=== PATIENT | female | born 1940 | race Caucasian/White ===

== ENCOUNTER 2024-08-06 11:09 | Inpatient (IN) | payer MEDICARE, SELFPAY ==
[2024-08-06] VITALS (20 sets, daily range): BP systolic 116–161; BP diastolic 39–138; PULSE 48–111; RESP 14–28; TEMP 36.4–36.6; O2SAT 93–100; BMI 24.1
--- NOTE | ~2024-08-06 | XR_ITS ---
Exam: Abdomen 1V HISTORY: constipation COMPARISON: None. TECHNIQUE: Supine images of the abdomen FINDINGS: Significant gaseous distention of the stomach. Fecal stasis within the colon. There is no free air or deep sulci. No pathologic calcifications are seen. Lung bases are clear. Bones and soft tissues demonstrate degenerative disease. IMPRESSION: Fecal stasis within the colon with extensive gaseous distention of the stomach. Reviewed, dictated and finalized at location A. TMAN
--- NOTE | ~2024-08-06 | XR_ITS ---
EXAMINATION: XR chest 1V portable DATE: 08/11/2024 10:13 INDICATION: Pneumonia. Leukocytosis. TECHNIQUE: A single frontal view of the chest was obtained. COMPARISON: Chest 2 views 08/06/2024 FINDINGS: There is mild atelectasis versus scarring in the lower lung zones. There are surgical tsang es in right lower lobe. No pleural effusion or pneumothorax. The heart size is normal. There is a tot al right shoulder arthroplasty. IMPRESSION: 1. Mild atelectasis versus scarring in the lower lung zones. Reviewed, dictated and finalized at location A. UCT SUPPORT CONSULTANT
--- NOTE | ~2024-08-06 | XR_ITS ---
EXAMINATION: XR chest 2V DATE: 08/06/2024 13:37 INDICATION: Weakness TECHNIQUE: frontal and lateral views of the chest were obtained. COMPARISON: None FINDINGS: Mild interstitial and airspace opacities in bilateral lower lung zones.There is blunting at the poste rior sulcus which could be related to postoperative scarring given the nearby multiple surgical clips in the infrahilar region of the posterior right lower lung zone or secondary to a small right pleura l effusion. No pneumothorax or left-sided pleural effusion.. Borderline heart size accounting for AP technique. Coronary artery stenting. Reverse right total shoulder arthroplasty. Surgical clips at the right axilla. IMPRESSION: 1. Mild opacities in the bilateral lower lung zones which could represent mild pulmonary edema, atele ctasis or pneumonia. 2. Postoperative changes in the right infrahilar region with blunting at the posterior sulcus which c ould represent either postoperative atelectasis/scarring versus a small right pleural effusion. 2. Borderline heart size. Reviewed, dictated and finalized at location B. ODUCTIVE ENDOCRINOLOGIST IMPRESSION: 1. Mild opacities in the bilateral lower lung zones which could represent mild pulmonary edema, atelectasis or pneumonia. 2. Postoperative changes in the right infrahilar region with blunting at the po sterior sulcus which could represent either postoperative atelectasis/scarring versus a small right pleural effusion. 2. Borderline heart size.
--- NOTE | 2024-08-06 11:57 | ECG_ITS ---
Test Date: 2024-08-06 13:17:45 Measurements Intervals [place] Rate: 51 P: 101 [place]: 173 QRS: 49 QRSD: 122 T: 34 QT: 455 QTc: 421 Interpretive Statements SINUS BRADYCARDIA WITH OCCASIONAL SUPRAVENTRICULAR PREMATURE COMPLEXES RIGHT BUNDLE BRANCH BLOCK [120+ ms QRS DURATION, UPRIGHT V1, 40+ ms S IN I/aVL/V4/V5/V6] No previous ECG available for comparison Electronically Signed On 08-06-2024 14:33:05 [facility] by Justin Stephens M.D.
--- NOTE | 2024-08-06 11:58 | ED.WEAKNESS ---
HPI - Weakness General Chief complaint: Weakness <Lenore Smalls PA-C - Last Filed: 08/07/24 17:20> Stated complaint: sob, recent flu+ <Lenore Smalls PA-C - Last Filed: 08/07/24 17:20> Time Seen by Provider: 08/06/24 11:59 <Lenore Smalls PA-C - Last Filed: 08/07/24 17:20> Focused HPI: This is a 83 year old female that presents to the ER for shortness of breath. Also reports generalized weakness. Family believes she had the flu. Has had worsening productive cough. Weakness to the point where she is having difficulty getting around. Reports history of COPD, chronically on 3L NC. GENERAL: Elderly, well-nourished, and in no acute distress. HEAD: Normocephalic, atraumatic. CHEST: No respiratory distress. Rales in the left lower lobe HEART: Regular rate and rhythm.? NEURO: ?Alert and oriented x3. Patient screened in triage and initial orders placed.? ?Additional care and disposition to be based upon?diagnostic testing and treatment. <Lenore Smalls PA-C - Last Filed: 08/07/24 17:20> History of Present Illness HPI Narrative: Agree with MSE <Chuck Hair MD - Last Filed: 08/06/24 16:49> Related Data Home medications: Home Medications ?Medication ?Instructions ?Recorded ?Confirmed ?Last Taken ?Type furosemide 20 mg tablet 20 mg PO DAILY 08/06/24 08/07/24 Unknown History losartan 25 mg tablet 25 mg PO DAILY 08/06/24 08/07/24 08/05/24 History metoprolol tartrate 50 mg tablet 50 mg PO DAILY 08/06/24 08/07/24 08/05/24 History <Lenore Smalls PA-C - Last Filed: 08/07/24 17:20> Allergies/Adverse reactions: Allergies Allergy/AdvReac Type Severity Reaction Status Date / Time No Known Allergies Allergy Verified 08/06/24 11:10 <Lenore Smalls PA-C - Last Filed: 08/07/24 17:20> Review of Systems Review of Systems: All systems reviewed & are unremarkable except as noted in HPI and below <Lenore Smalls PA-C - Last Filed: 08/07/24 17:20> [facility] Past Medical History Medical History: Medical History Chronic kidney disease, stage 3 Chronic respiratory failure with hypoxia, on home oxygen therapy Chronic obstructive pulmonary disease <Lenore Smalls PA-C - Last Filed: 08/07/24 17:20> Family History Family History: Family History (Updated 08/07/24 @ 01:35 by Ronan Balbuena, RN) Other Cerebrovascular accident <Lenore Smalls PA-C - Last Filed: 08/07/24 17:20> Social History Social History: Social History (Updated 08/06/24 @ 18:27 by Daniela Sanz PA-C) Social History: Surrogate medical decision maker: Anthony Awan, son ([phone]). Code status: Full code. Smoking status: Former smoker Tobacco type: cigarettes Smoking end date: 07/16/12 Alcohol intake: former Drinks per week: 7 Substance use: never Do You Feel Safe in your Home?: Yes Lack of Transportation: No Lack of Food: Never True Current Housing: I Have Housing Concerned About Future Housing: No Difficulty Paying Gas/Electric Bills: No Difficulty Paying for Meds: No Currently Unemployed: No Education: Bachelor's Degree Difficulty w/ Childcare or Family Care: No Spiritual care concerns: No <Lenore Smalls PA-C - Last Filed: 08/07/24 17:20> Exam Narrative: APPEARANCE: No apparent distress. Head: atraumatic. EYES: EOMI, NOSE: Atraumatic NECK: Trachea midline RESPIRATORY: Tachypneic, scattered wheezing CARDIOVASCULAR: RRR, no peripheral edema ABDOMINAL: Non-distended soft nontender MUSCULOSKELETAl: No obvious deformities NEURO: Alert. Moving 4/4 extremities SKIN:: Warm, dry. Normal color PSYCHIATRIC: Normal affect <Chuck Hair MD - Last Filed: 08/06/24 16:49> Course Vital Signs Vital signs: Vital Signs Temperature 97.6 F 08/06/24 11:10 Pulse Rate 76 08/06/24 11:10 Respiratory Rate 22 H 08/06/24 11:10 Blood Pressure 143/39 H 08/06/24 11:10 Pulse Oximetry 96 08/06/24 11:10 Oxygen Delivery Nasal Cannula 08/06/24 11:10 Oxygen Flow Rate 3 08/06/24 11:10 Temperature 99.2 F 08/07/24 14:00 Pulse Rate 68 08/07/24 14:18 Respiratory Rate 20 08/07/24 14:18 Blood Pressure 130/116 H 08/07/24 14:00 Pulse Oximetry 94 08/07/24 14:00 Oxygen Delivery Nasal Cannula 08/07/24 09:40 Oxygen Flow Rate 3 08/07/24 09:40 <Lenore Smalls PA-C - Last Filed: 08/07/24 17:20> Vital Signs Temperature 97.6 F 08/06/24 11:10 Pulse Rate 76 08/06/24 11:10 Respiratory Rate 22 H 08/06/24 11:10 Blood Pressure 143/39 H 08/06/24 11:10 Pulse Oximetry 96 08/06/24 11:10 Oxygen Delivery Nasal Cannula 08/06/24 11:10 Oxygen Flow Rate 3 08/06/24 11:10 Temperature 99.2 F 08/07/24 14:00 Pulse Rate 68 08/07/24 14:18 Respiratory Rate 20 08/07/24 14:18 Blood Pressure 130/116 H 08/07/24 14:00 Pulse Oximetry 94 08/07/24 14:00 Oxygen Delivery Nasal Cannula 08/07/24 09:40 Oxygen Flow Rate 3 08/07/24 09:40 <Chuck Hair MD - Last Filed: 08/06/24 16:49> MDM - Weakness MDM Narrative Medical decision making narrative: -Course: 83-year-old female on 3 L home oxygen who tested positive for flu @ home presenting for difficulty breathing. Symptoms started 8 days ago. On exam she is wheezy. She has dyspnea at rest. Patient given a breathing treatment. Found have an incidental UTI and started on ceftriaxone. Chest x-ray showed opacities the bilateral lows zones of could be pulmonary edema atelectasis or pneumonia. BNP at 3800 but patient does not appear fluid overloaded. No echo in our system. Patient will be admitted hospital for further management of for influenza. -DDX includes but is not limited to: COVID/flu/pneumonia/COPD/CHF -Independent interpretation of studies: White count 7.1 Metabolic panel normal BNP 3900 chest x-ray shows borderline heart and bibasilar edema versus infiltrates. Urine with 21-50 white blood cells and +2 leuk esterase. Started on ceftriaxone. Independent EKG interpretation: Rhythm [sinus], Rate [51], [place] -[normal], [place] -[normal], QRS [narrow], QTC [normal], T waves -[negative for concerning inversions], ST Segments - [Negative for concerning elevations] Final interpretations: Sinus Walter -Shared decision making / Disposition: Admitted. <Chuck Hair MD - Last Filed: 08/06/24 16:49> Lab Data Result diagrams: 08/07/24 06:26 08/07/24 06:26 <Lenore Smalls PA-C - Last Filed: 08/07/24 17:20> Labs: Lab Results 08/06/24 08/06/24 Range/Units 12:03 13:21 WBC 7.1 (4.5-10.0) K/mm3 RBC 4.39 (4.2-5.4) M/mm3 Hgb 11.6 L (12.0-15.0) g/dL Hct 37.0 (37.0-47.0) % MCV 84.3 (80-100) fl MCH 26.4 (26-34) pg MCHC 31.4 L (32-36) g/dl RDW 14.2 (11.5-14.5) % Plt Count 233 (150-375) k/mm3 MPV 9.7 (7.4-10.4) fl Immature Gran % (Auto) 0.7 H (0-0.5) % Neut % (Auto) 77.1 H (45.5-73.1) % Lymph % (Auto) 16.3 L (18.3-44.2) % [place] % (Auto) 4.8 (2.6-8.5) % Eos % (Auto) 0.8 (0-4.4) % Baso % (Auto) 0.3 (0.2-1.2) % Lymph # (Auto) 1.16 (0.9-3.2) K/mm3 [place] # (Auto) 0.3 (0.1-0.6) K/mm3 Eos # (Auto) 0.1 (0-0.3) K/mm3 Baso # (Auto) 0.0 (0.0-0.1) K/mm3 Abs Immat Gran (auto) 0.05 H (0.00-0.031) K/mm3 Absolute Neuts (auto) 5.5 (1.3-6.7) K/mm3 Absolute Nucleated RBC 0.000 (0.0-0.012) K/mm3 Nucleated RBC % 0.0 (0.0-0.2) % PT 13.6 (11.1-14.7) Seconds INR 1.0 APTT 30.5 (22.3-36.8) Seconds Sodium 140 (137-145) mmol/L Potassium 4.9 (3.4-5.0) mmol/L Chloride 102 (98-107) mmol/L Carbon Dioxide 28 (22-30) mmol/L Anion Gap 10 (4-12) mmol/L BUN 43 H (7-17) mg/dL Creatinine 1.55 H (0.7-1.0) mg/dL Estim Creat Clear Calc 20 ml/min Estimated GFR 32 L (59 - ) Glucose 148 H (65-110) mg/dL Calcium 10.0 (8.4-10.2) mg/dL Total Bilirubin 0.6 (0.2-1.3) mg/dL AST 20 (14-36) U/L ALT 10 (6-35) U/L Alkaline Phosphatase 107 (38-126) U/L NT-Pro-B Natriuret Pep 3920 H (19.9-100) pg/mL Total Protein 7.0 (6.3-8.2) g/dL Albumin 3.7 (3.5-5.1) g/dL Urine Color Yellow (Yellow) Urine Appearance Clear (Clear) Urine pH 5.0 (5.0-9.0) Ur Specific [place] 1.016 (1.001-1.035) Urine Protein 2+ H (Negative) mg/dL Urine Glucose (UA) Negative (Negative) mg/dL Urine Ketones Negative (Negative) mg/dL Ur Blood (Man) Negative (Negative) Urine Nitrate Negative (Negative) Urine Bilirubin Negative (Negative) Urine Urobilinogen 0.2 (<2.0) mg/dL Leukocyte Esterase Rfl 2+ H (Negative) OLEGARIO/UL Urine RBC 0-2 (0-2) /hpf Urine WBC 21-50 H (0-3) /hpf Ur Squamous Epith Cells None seen (Few) /hpf Urine Bacteria None seen /hpf Urine Casts 3-5 Influenza A (RT-PCR) Positive A (Negative) Influenza B (RT-PCR) Negative (Negative) RSV (RT-PCR) Negative (Negative) SARS-CoV-2 RNA (RT-PCR) Negative (Negative) <Lenore Smalls PA-C - Last Filed: 08/07/24 17:20> Lab Results 08/06/24 08/06/24 Range/Units 12:03 13:21 WBC 7.1 (4.5-10.0) K/mm3 RBC 4.39 (4.2-5.4) M/mm3 Hgb 11.6 L (12.0-15.0) g/dL Hct 37.0 (37.0-47.0) % MCV 84.3 (80-100) fl MCH 26.4 (26-34) pg MCHC 31.4 L (32-36) g/dl RDW 14.2 (11.5-14.5) % Plt Count 233 (150-375) k/mm3 MPV 9.7 (7.4-10.4) fl Immature Gran % (Auto) 0.7 H (0-0.5) % Neut % (Auto) 77.1 H (45.5-73.1) % Lymph % (Auto) 16.3 L (18.3-44.2) % [place] % (Auto) 4.8 (2.6-8.5) % Eos % (Auto) 0.8 (0-4.4) % Baso % (Auto) 0.3 (0.2-1.2) % Lymph # (Auto) 1.16 (0.9-3.2) K/mm3 [place] # (Auto) 0.3 (0.1-0.6) K/mm3 Eos # (Auto) 0.1 (0-0.3) K/mm3 Baso # (Auto) 0.0 (0.0-0.1) K/mm3 Abs Immat Gran (auto) 0.05 H (0.00-0.031) K/mm3 Absolute Neuts (auto) 5.5 (1.3-6.7) K/mm3 Absolute Nucleated RBC 0.000 (0.0-0.012) K/mm3 Nucleated RBC % 0.0 (0.0-0.2) % PT 13.6 (11.1-14.7) Seconds INR 1.0 APTT 30.5 (22.3-36.8) Seconds Sodium 140 (137-145) mmol/L Potassium 4.9 (3.4-5.0) mmol/L Chloride 102 (98-107) mmol/L Carbon Dioxide 28 (22-30) mmol/L Anion Gap 10 (4-12) mmol/L BUN 43 H (7-17) mg/dL Creatinine 1.55 H (0.7-1.0) mg/dL Estim Creat Clear Calc 20 ml/min Estimated GFR 32 L (59 - ) Glucose 148 H (65-110) mg/dL Calcium 10.0 (8.4-10.2) mg/dL Total Bilirubin 0.6 (0.2-1.3) mg/dL AST 20 (14-36) U/L ALT 10 (6-35) U/L Alkaline Phosphatase 107 (38-126) U/L NT-Pro-B Natriuret Pep 3920 H (19.9-100) pg/mL Total Protein 7.0 (6.3-8.2) g/dL Albumin 3.7 (3.5-5.1) g/dL Urine Color Yellow (Yellow) Urine Appearance Clear (Clear) Urine pH 5.0 (5.0-9.0) Ur Specific [place] 1.016 (1.001-1.035) Urine Protein 2+ H (Negative) mg/dL Urine Glucose (UA) Negative (Negative) mg/dL Urine Ketones Negative (Negative) mg/dL Ur Blood (Man) Negative (Negative) Urine Nitrate Negative (Negative) Urine Bilirubin Negative (Negative) Urine Urobilinogen 0.2 (<2.0) mg/dL Leukocyte Esterase Rfl 2+ H (Negative) OLEGARIO/UL Urine RBC 0-2 (0-2) /hpf Urine WBC 21-50 H (0-3) /hpf Ur Squamous Epith Cells None seen (Few) /hpf Urine Bacteria None seen /hpf Urine Casts 3-5 Influenza A (RT-PCR) Positive A (Negative) Influenza B (RT-PCR) Negative (Negative) RSV (RT-PCR) Negative (Negative) SARS-CoV-2 RNA (RT-PCR) Negative (Negative) <Chuck Hair MD - Last Filed: 08/06/24 16:49> Imaging Data Radiologist's impression: ITS Impressions Chest X-Ray 08/06/24 13:38 IMPRESSION: 1. Mild opacities in the bilateral lower lung zones which could represent mild pulmonary edema, atelectasis or pneumonia. 2. Postoperative changes in the right infrahilar region with blunting at the posterior sulcus which could represent either postoperative atelectasis/scarring versus a small right pleural effusion. 2. Borderline heart size. <Lenore Smalls PA-C - Last Filed: 08/07/24 17:20> Critical Care Time Critical Care Time Critical Care Time: No <Lenore Smalls PA-C - Last Filed: 08/07/24 17:20> Discharge Plan Discharge Clinical Impression: Influenza A, COPD exacerbation <Lenore Smalls PA-C - Last Filed: 08/07/24 17:20> Patient Disposition: Still a Patient <DIONTE Burgos Last Filed: 08/07/24 17:20> Condition: Guarded Prognosis <DIONTE Burgos Last Filed: 08/07/24 17:20>
[2024-08-06 12:19] LABS: Basophils Percent Auto 0.3 % (0.2-1.2); Eosinophils Absolute Auto 0.1 K/mm3 (0-0.3); Eosinophils Percent Auto 0.8 % (0-4.4); Hemoglobin 11.6 g/dL (12.0-15.0); Immature Granulocyte Absolute 0.05 K/mm3 (0.00-0.031); Immature Granulocyte Percent A 0.7 % (0-0.5); Lymphocytes Absolute Auto 1.16 K/mm3 (0.9-3.2); Lymphocytes Percent Auto 16.3 % (18.3-44.2); Mean Corpuscular HGB Conc 31.4 g/dl (32-36); Mean Corpuscular Hemoglobin 26.4 pg (26-34); Mean Corpuscular Volume 84.3 fl (80-100); Mean Platelet Volume 9.7 fl (7.4-10.4); Monocytes Absolute Auto 0.3 K/mm3 (0.1-0.6); Monocytes Percent Auto 4.8 % (2.6-8.5); Neutrophils Absolute Auto 5.5 K/mm3 (1.3-6.7); Neutrophils Percent Auto 77.1 % (45.5-73.1); Platelet Count Result 233 k/mm3 (150-375); Red Blood Count 4.39 M/mm3 (4.2-5.4); Red Cell Distribution Width 14.2 % (11.5-14.5); White Blood Count 7.1 K/mm3 (4.5-10.0)
[2024-08-06 12:31] LABS: Alanine Aminotransferase 10 U/L (6-35); Albumin Level 3.7 g/dL (3.5-5.1); Alkaline Phosphatase 107 U/L (38-126); Anion Gap 10 mmol/L (4-12); Aspartate Amino Transferase 20 U/L (14-36); Bilirubin,Total 0.6 mg/dL (0.2-1.3); Blood Urea Nitrogen 43 mg/dL (7-17); Carbon Dioxide 28 mmol/L (22-30); Chloride 102 mmol/L (98-107); Estimated CRCL calculation 20 ml/min; Estimated Glomerular Filt Rate 32; Glucose 148 mg/dL (65-110); Potassium 4.9 mmol/L (3.4-5.0); Sodium 140 mmol/L (137-145)
[2024-08-06 12:32] LABS: Prothrombin Time 13.6 Seconds (11.1-14.7)
[2024-08-06 12:33] LABS: Partial Thromboplastin Time 30.5 Seconds (22.3-36.8)
[2024-08-06 12:40] LABS: NT Pro B Type Natriuretic Pept 3920 pg/mL (19.9-100)
[2024-08-06 12:56] LABS: Influenza A QL RT-PCR Positive (Negative); Influenza B QL RT-PCR Negative (Negative); RSV RNA, RT-PCR Negative (Negative); SARS-CoV-2 RNA PCR Negative (Negative)
[2024-08-06 14:05] LABS: Add Urine Microscopic? YES; Appearance Urine Clear (Clear); Bacteria Urine None Seen /hpf; Bilirubin Urine Negative (Negative); Blood Urine Negative (Negative); Color Urine Yellow (Yellow); Glucose Urine UA Negative (Negative); Ketones Urine Negative (Negative); Leukocyte Esterase Ur 2+ LEU/UL (Negative); Nitrate Urine Negative (Negative); Protein Urine 2+ mg/dL (Negative); RBC Urine 0-2 /hpf (0-2); Specific Grav Ur 1.016 (1.001-1.035); Squamous Epithelial Cell Urine None Seen /hpf (Few); Urobilinogen Urine 0.2 mg/dL (<2.0); WBC Urine 21-50 /hpf (0-3)
[2024-08-06] MEDS: IPRATROPIUM 0.5 MG/ALBUTEROL SULFATE 2.5 MG AMPUL.NEB 3 ML 12 ML INHALATION (16:48)
[2024-08-06 16:58] LABS: Alveolar/Arterial O2 Gradient 174.6 mmHg; Base Excess ABG -1.1 mEq/l (+/-2.0); Fractional Inspired Oxygen 40 %; HCO3 ABG 22.2 mEq/l (22.0-26.0); Oxygen Content ABG 15.7 %vol (16.0-22.0); Oxygen Saturation ABG 95.5 % (95.0-100.0); Oxyhemoglobin 94.6 % THb (90.0-100.0); PCO2 ABG 32.5 mmHg (35.0-45.0); PO2 ABG 73.2 mmHg (80.0-100.0); PO2 FiO2 Ratio Arterial Blood 1.83 %; Total Hemoglobin 11.8 g/dL (12.0-18.0); pH ABG 7.452 (7.350-7.450)
[2024-08-06] MEDS: methylPREDNISolone SOD SUCC 125 MG VIAL 60 MG IV PUSH ×2 (17:08→23:15)
--- OUTSIDE RECORDS SUMMARY | 2024-08-06 17:08 | XMS_ITS | Encounter Summary ---
Author Organization [facility] Address [facility]. [place], [place] [id number] [place] [id number] Care Team Providers Care Fisher Eel Spear Name Role Phone Dagoberto Coates MD Primary Care Provider Cecil Bertrand MD Unavailable Unavailable Hussein oRbertson MD Unavailable [phone] Encounter Details Date Type Department Care Team ([facility] Contact Info) Description [facility]/13/2015 [facility] [address] [phone] Wilmer Caldera MD Social History Tobacco Use Types Packs/Day Years Used Date Smoking Tobacco: Former Cigarettes Q uit: 2013 Alcohol Use Standard Drinks/Week Comments Not Asked 0 (1 standard drink = 0.6 oz pur e alcohol) Rarely Comments Unknown Sex and Gender Information Value Date Recorded Sex Assigned at Not on file Legal Sex Female 1:16 AM CDT Gender Identity Not on file Sexual Orientation Not on file Occupation Industry Job Start Date Job End Date Retired Not on file Not on file Not on file documented as of this encounter Plan of Treatment Upcoming Encounters Date Type Department Care Team (Late Contact Info) Description 11/09/2024 1:00 PM CDT Office Visit [facility] [address] [place] [id number] Dagoberto Coates MD [address] [place] [phone] documented as of this encounter Visit Diagnoses Not on filedocumented in this encounter Additional Health Concerns Infection Onset Date Last Indicated Resolved Time COVID-19 Rule Out 04/12/2020 04/12/2020 04/14/2020 9:42 AM CDT documented as of this encounter Care Teams Fisher Eel Spear Relationship Specialty Start Date End Date Dagoberto Coates MD [address] [place] [phone] PCP - General FAMILY PRACTICE 05/14/16 Cecil Bertrand MD [address] [place] [phone] CARDIOVASCULAR DISEASE 05/14/16 05/08/20 Hussein Robertson MD [address] [place] [phone] [place] [employer] INTERVENTIONAL CARDIOLOGY 05/09/20 documented as of this encounter
--- OUTSIDE RECORDS SUMMARY | 2024-08-06 17:09 | XMS_ITS | Data Portability ---
Author Organization [facility], [address] [place] [address] [place]rology ([place]) Address [address] [place] [phone] Care Team Providers Care Aircraft Engine Assembler Name Role Phone JOSHUA BARRY Primary Care Provider Assessment Encounter Date Assessment Date Assessment LastModified by Organization Details LastModified Time 10/17/2023 10/17/2023 Interval History : The patient presents today for surgical follow-up after a rightreverse total shoulder arthroplasty. The patient feels like they are on par with the recovery process and doing well Activity:The patient has been using their surgical shoulder for normal light tasks without difficulty. Incision: The patient reports their incision is healing well without complication. Therapy: The patient has completed her PT regimen. PHYSICAL EXAM: Objective/exam: Sensory motor nerve function : SILT across median, ulnar, radial distributions AXILLARY NERVE able to fire all three heads of the deltoid strongly PASSIVE RANGE OF MOTIONtolerated passive ROM without crepitance Active Foward elevation> 150 degrees. External Rotation 50-70 degrees. Internal RotationLumbar Spine. INCISION: The incision is fully healed without complication. Assessment: Side:Right Reverse total shoulder Plan: We discussed the overall clinical findings as well as reviewed the patient? s course in the digital record and to an extent with the patient. We discussed the expected prognosis and the plan moving forward. We reviewed anything we could have changed along the way with the patient and offered a time for feedback. Both the patient and myself are informed in my estimation based on the encounter today. We discussed some of the complicating factors that could affect this patient's course fdc. At the end of the conversation I, again, gave the patient a chance to ask any questions and answered them to the best of my ability. Therapy: We feel the patient is doing well enough to transition to a home based therapy regimen We will continue to follow the patient along per our protocol. They were encouraged to call our office with any questions or concerns in the meantime. Followup at the 1 year postop elisabet. The patient was given follow up information and the ability to contact our clinic with any additional questions. [email or web address] Not available 10/17/2023 16:17:53 06/26/2024 06/26/2024 RESULTS/DATA: Spirometry shows moderate obstruction. IMPRESSION AND PLAN: Obtain chest x-ray. She is going to follow up with her primary care doctor for a fatigue workup. Continue nebulized Yupelri q. day. Continue nebulized Perforomist b.i.d. Continue nebulized budesonide b.i.d. Continue albuterol as rescue therapy. Continue supplemental oxygen 2 L/min with rest/sleep and 3 L/min with activity. I will see her back in 9 months. The agenda will include a simple spirometry. She is too weak to walk. clb [email or web address] Not available 06/26/2024 12:47:28 Plan of Treatment Reminders Order Date Submit Date Provider Last Modified By Organization Details Last Modified Time Details Appointments Michele w Exercise Oximetry .PRO 2024 01:30P M [facility] Not available Not available Not available Establis hed Patient 15.EST 2024 02:00P M Dr. Tato Peralta Not available Not available Not available Lab None recorded . Referral None recorded . Procedures None recorded . Surgeries None recorded . Imaging XR, chest, 2 view 2023 024 DUANE [facility], [address] [place] [address], [id number], 06/26/2024 12:33:56 Medication Orders None recorded . Patient TargetsNo targets recorded. Patient InstructionsNo instructions recorded. Reason for Referral None Reported. Results Created Date Observation Date Name Description Value Unit Range Abnormal Flag Note LastModifiedBy Organization Detail LastModifiedTime 10/18/19 24 10/17/2023 XR, shoul lupillo, 2 or more view [facility] [address]st [address] [address] Teleph one [phone] Name: Dean Awan [id number] am Date: 2023 Age: 82Phys ician: WILLIAM Grace, Alma : 1940Ex aminat ion: XR SHOULD ER COMPLE TE RIGHT EXAMIN ATION: Right should er x-ray, 4 views INDICA TION: Post op right should er surger y . FINDIN GS: No fractu re identi fied. There is a revers e should er arthro plasty . The compon ents appear well seated . No destru ctive osseou s lesion identi fied. There is a healin g fractu re of the proxim al humeru s unchan ged since 07/10/19. IMPRES DOE: Healin g fractu re the proxim al humeru s and revers e should er arthro plasty withou t signif icant change since 07/10/19. Electr onical ly signed in Gaytan cribe by: FRANSISCO MCFARLAND MD on:10/06 7:51 AM cc: Page PAGE 1 of [facility] 1 [email or web address] Sc Only - S c Radiology [address] [place] [address], [id number], 10/21/2023 08:12:26 11/07/19 24 11/07/2023 PFT No observ ation record ed. INTERFACE [facility] Only - [facility] Pulmon[facility] [address] [place] [address], [id number], 11/07/2023 17:34:47 11/08/19 24 11/07/2023 XR, chest , 2 view [facility] [address] [address] Teleph one Name: Dean Awan [id number] Exam Date: 2023 Age: 82 Physic jaguar: MD Fabian, Eric nesbitt : 1940 Examin ation: XR CHEST 2 VIEWS Chest X-Ray Indica tion: Routin e follow up for histor y of COPD. Chroni c shortn ess of breath .. Compar isons: 11/09/19 Techni que: 2 views of the chest. Findin gs: Right hip arthro plasty . Surgic al clips overli e the right lower lobe. Blunti ng of the right costop hrenic angle which is chroni c. No pulmon thien consol idatio n. Unrema rkable cardio medias tinal silhou ette. No pleura l effusi on or pneumo thorax . No acute osseou s abnorm ality. Impres doe No acute cardio pulmon thien abnorm ality. Electr onical ly signed in Gaytan cribe by: IVANA AZAR MD on:11/07 7:42 AM cc: Page PAGE 1 of [facility] ES 1 INTERFACE [facility] [address] [place], [address], 11/08/2023 08:45:34 02/19/20 24 11/08/2022 imagi ng/di agnos tic resul t No observ ation record ed. Not Available 02/19/2024 22:02:45 02/19/20 24 01/15/2023 imagi ng/di agnos tic resul t No observ ation record ed. Not Available 02/19/2024 22:02:50 05/04/20 24 11/07/2023 imagi ng/di agnos tic resul t No observ ation record ed. [email or web address] Not Available 05:08:11 06/26/20 24 06/26/2024 XR, chest , 2 view [facility] [address] [place] [address] Teleph one Name: Dean Awan [id number] Exam Date: 2023 Age: 83 Physic jaguar: MD Fabian, Eric : 1940 Examin ation: XR CHEST 2 VIEWS EXAMIN ATION: Chest 2 views HISTOR Y: Routin e check up for COPD, patien t on oxygen , histor y fatigu e and cough. FINDIN GS: Compar alicia made to 11/07/19 24. There is a revers e ball-a nd-soc ket right should er arthro plasty . Posttr eatmen t change s in the right lung are again noted. There is no new consol idatio n or pneumo thorax . Heart size normal . Unchan ged blunti ng of the right costop hrenic angle. IMPRES DOE: No acute change seen Electr onical ly signed in Gaytan cribe by: BITA Rowan on: 4 11:31 AM cc: Page PAGE 1 of [facility] 1 verna [facility] Only - [facility] Radiology [address] [place] [address], [id number], 06/26/2024 14:26:56 06/26/20 24 06/26/2024 PFT No observ ation record ed. INTERFACE [facility] Only - [facility] [address] [place] [address], [id number], 06/26/2024 14:05:23 Result Notes None recorded. Problems Name Problem SNOMED Code Status Onset Date Resolution Date Notes Provider Name and Address Organization Details Recorded Time Pain of left shoulder joint 6664211624557 9109 Active 2023 Marina Pan [facility] 4 10:51:28 Pain of right shoulder joint 2001744890537 9100 Active 2023 Marina Traylorbs [facility] 4 15:26:39 Chronic obstructive pulmonary disease 76604451 Active 2023 Jovanna Jorge Luis [facility] 4 11:03:24 Problem Notes None recorded. Procedures Surgical History None recorded. Imaging Results Imaging Date Name Status LastModified by Organiz ation Details LastModified Time 10/17/2023 XR, shoulder, 2 or more view completed [email or web address] [facility] [address] [place] [address], [id number], 10/21/2023 08:12:26 11/07/2023 PFT completed INTERFACE [facility] Only - [facility] [address] [place] [address], [id number], 11/07/2023 17:34:47 11/07/2023 XR, chest, 2 view completed INTERFACE [facility] - [facility] [address] [place] [address], [id number], 11/08/2023 08:45:34 11/08/2022 imaging/diag nostic result completed [email or web address] Information not available 02/19/2024 22:02:45 01/15/2023 imaging/diag nostic result completed [email or web address] Information not available 02/19/2024 22:02:50 11/07/2023 imaging/diag nostic result completed [email or web address] Information not available 05/04/2024 05:08:11 06/26/2024 XR, chest, 2 view completed [email or web address] [facility] Only - [facility] [address] [place] [address], [id number], 06/26/2024 14:26:56 06/26/2024 PFT completed INTERFACE [facility] Only - [facility] [address] [place] [address], [id number], 06/26/2024 14:05:23 Procedure Notes None recorded. Medical Equipment None Reported. Medications Name Sig Start Date Stop Date Status Note LastModified by Organization Details LastModified Time atorvastatin 40 mg tablet active Not Available Not Available Not Available albuterol sulfate 2.5 mg/3 mL (0.083 %) solution for nebulization Inhale 3 mL every 6 hours by nebulizatio n route as needed. active Not Available Not Available No t Available trazodone 50 mg tablet active Not Available Not Available No t Available clopidogrel 75 mg tablet active Not Available Not Available Not Available levofloxacin 250 mg tablet active Not Available Not Available Not Available amlodipine 5 mg tablet active Not Available Not Available No t Available metformin 1,000 mg tablet active Not Available Not Available Not Available losartan 25 mg tablet active Not Available Not Available No t Available metoprolol tartrate 50 mg tablet active Not Available Not Available No t Available budesonide 0.5 mg/2 mL suspension for nebulization Inhale 2 mL twice a day by nebulizatio n route. active Not Available Not Available No t Available furosemide 20 mg tablet active Not Available Not Available Not Available formoterol fumarate 20 mcg/2 mL solution for nebulization Inhale 2 mL twice a day by inhalation route. active Not Available Not Available No t Available Yupelri 175 mcg/3 mL solution for nebulization Inhale 3 mL every day by nebulizatio n route. active Not Available Not Available No t Available albuterol sulf 90 mcg/actuatio n breath activated powder inhaler,sens or Inhale 2 puffs every 6 hours by inhalation route as needed. active Not Available Not Available No t Available Vitals Date Recorded Heart rate Body height Body weight Body mass index (BMI) Provider Name and Address Organization Details Last Updated DateTime 04/15/2024 61 /min 162.56 cm 33040.785 21 g 22.83 kg/m2 Not Available [facility] 04/15/2024 06:03:46 Date Recorded Oxygen saturation Oxygen saturation in Arterial blood by Pulse oximetry Provider Name and Address Organization Details Last Updated DateTime 04/15/2024 95 % 95 % Not Available [facility] 06:03:47 Date Recorded Body height Provider Name an d Address Organization Details Last Updated DateTime 06/26/2024 [facility] 06/26/2024 11:28:57 Date Recorded Body mass index (BMI) Body weight Provider Name and Address Organization Details Last Updated DateTime 06/26/2024 24.4 kg/m2 78469.12 g Dora [facility] 06/26/2024 11:29:03 Date Recorded Heart rate Provider Name an d Address Organization Details Last Updated DateTime 06/26/2024 64 /min [facility] D [facility] 06/26/2024 11:29:14 Date Recorded Oxygen saturation Oxygen saturation in Arterial blood by Pulse oximetry Provider Name and Address Organization Details Last Updated DateTime 06/26/2024 94 % 94 % [facility] 06/26/2024 11:29:26 Date Recorded Systolic blood pressure Diastolic blood pressure Provider Name and Address Organization Details Last Updated DateTime 04/15/2024 133 mm[Hg] 64 mm[Hg] Not Available [place] [address] 05:19:10 Date Recorded Systolic blood pressure Diastolic blood pressure Provider Name and Address Organization Details Last Updated DateTime 06/26/2024 150 mm[Hg] 63 mm[Hg] Dora Valdez [facility] 06/26/2024 11:29:10 Social History Question Answer Notes LastModified by Organizat ion Details LastModified Time Tobacco Smoking Status Former Smoker Dora Valdez [facility] 06/26/2024 11:30:23 How Many Packs Per Day (PPD)? 3 [email or web address] Information not available 06/26/2024 How Long Have You Smoked? 57 [email or web address] Information not available 06/26/2024 When Did You Quit Smoking? 2013 Information not available 06/26/2024 Sex: Unknown Functional Status None recorded. Mental Status None recorded. Family History Nothing Reported. Medical History No medical history recorded. Gynecological HistoryNo gynecological history recorded. Obstetrics History GPAL:G 0 P 0 0 0 0 Past Encounters Encounter ID Performer Location Encounter Start Date Encounter Closed Date Diagnosis/Indication Diagnosis SNOMED-CT Code Diagnosis ICD10 Code Diagnosis Note [id number] Alma Ledezma, MEDICAL SCIENTIST, PACKING MACHINE [employer]IL[employer]TER [address] [facility] ([place]) [address] [place] [phone] 10/17/2023 14:58:26 10/17/2023 17:45:10 [id number] Jovanna Kang [facility] [address] [place] [phone] 06/26/2024 10:56:46 06/26/2024 12:07:41 Chronic obstructive pulmonary disease 04686596 J44.9 [id number] Tato Peralta MD [facility] ([place]) [address] [place] [address] 06/26/2024 10:56:52 06/26/2024 14:47:17 Chronic obstructive pulmonary disease 43236908 J44.9 History of malignant neoplasm of thoracic cavity structure 072726526 Z85.118 Dependence on supplemental oxygen 0604519312 07 Z99.81 Health Concerns Section Related Observation LastModified by Organization Detai ls LastModified Time None Recorded Concern Status LastModified by Organization Details LastModified Time None Recorded Advance Directives Directive None Recorded Payers Encounter Date Sequence Insurance Name Policy Number Policy Valero Covered Member ID Valero Member ID Guarantor Name 10/17/2023 1 [place] Demetria Awan [id number] Demetria Awan 10/17/2023 2 [employer] (MEDICARE SUPPLEMENT) Demetria Awan [id number] Demetria Awan 06/26/2024 1 [place] Demetria Awan [id number] Demetria Awan 06/26/2024 2 [employer] (MEDICARE SUPPLEMENT) Demetria Awan [id number] Demetria Awan 06/26/2024 1 [place] Demetria Awan [id number] Demetria Awan 06/26/2024 2 [employer] (MEDICARE SUPPLEMENT) Demetria Choudharydin [id number] Demetria Awan Notes Date Note Type Note Provider Name and Address Organization Details Recorded Time 06/26/2024 text/html CHIEF COMPLAINT:COPD. HISTORY OF PRESENT ILLNESS:The patient returns today for follow-up accompanied by her son. Since I last saw her, it sounds like her course has been complicated by progressive fatigue and weakness. It is getting increasingly difficult to do anything. She also shared with me that she has chronic kidney disease. She has chronic shortness of breath, worse with exertion, relieved with rest. It is maybe a little bit worse than the last time I saw her. No cough. No wheezing. She is tolerating the Yupelri without any side effects. She is tolerating the Perforomist without any side effects. She is tolerating the budesonide without any side effects. She does not use her rescue medicine daily. She perceives a benefit to oxygen. Tato Peralta MD [address] [facility] [place], [place], [address], [facility] 06/26/2024 14:29:02 OBGyn Episode No OBEpisode recorded.
--- OUTSIDE RECORDS SUMMARY | 2024-08-06 17:09 | XMS_ITS ---
Author Organization [facility] Address Unknown Allergies, Adverse Reactions, Alerts Substance Reaction Status Noted Date Resolved Date Bactrim active 04/18/2023 Problems Problem Status Start Date End Date UNSPECIFIED DISPLACED FRACTU RE OF SURGICAL NECK OF RIGHT HUMERUS, SUBSEQUENT ENCOUNTER FOR FRACTURE WITH ROUTINE HEALING (Primary) (S42.211D - ICD-10-CM) ACTIVE 04/18/2023 CHRONIC OBSTRUCTIVE PULMONAR Y DISEASE, UNSPECIFIED (J44.9 - ICD-10-CM) ACTIVE 04/18/2023 TYPE 2 DIABETES MELLITUS WIT HOUT COMPLICATIONS (E11.9 - ICD-10-CM) ACTIVE 04/18/2023 AFTERCARE FOLLOWING JOINT RE PLACEMENT SURGERY (Z47.1 - ICD-10-CM) ACTIVE 04/18/2023 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 - ICD-10-CM) ACTIVE 04/18/2023 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) ACTIVE 04/18/20 23 CHRONIC KIDNEY DISEASE, STAGE 3A (N18.31 - ICD-10-CM) ACTIVE 04/18/2023 PURE HYPERCHOLESTEROLEMIA, U NSPECIFIED (E78.00 - ICD-10-CM) ACTIVE 04/18/2023 IRON DEFICIENCY ANEMIA, UNSP ECIFIED (D50.9 - ICD-10-CM) ACTIVE 04/18/2023 PERIPHERAL VASCULAR DISEASE, UNSPECIFIED (I73.9 - ICD-10-CM) ACTIVE 04/18/2023 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-CM) ACTIVE 04/18/2023 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 (Z85.118 - ICD-10-CM) ACTIVE 04/18/2023 CONTACT WITH AND (SUSPECTED) EXPOSURE TO HUMAN IMMUNODEFICIENCY VIRUS [HIV] (Z20.6 - ICD-10-CM) ACTIVE 04/18/2023 ESSENTIAL (PRIMARY) HYPERTENSION (I10 - ICD-10-CM) ACT NEAL 04/18/2023 MILD INTERMITTENT ASTHMA, UN COMPLICATED (J45.20 - ICD-10-CM) ACTIVE 04/23/2023 PRESENCE OF RIGHT ARTIFICIAL SHOULDER JOINT (Z96.611 - ICD-10-CM) ACTIVE 04/19/2023 AFTERCARE FOLLOWING JOINT RE PLACEMENT SURGERY (Z47.1 - ICD-10-CM) RESOLVED 08/15/2016 04/18/2023 ABNORMAL POSTURE (R29.3 - ICD-10-CM) RESOLVED 03/201704/18/2023 DIFFICULTY IN WALKING, NOT E LSEWHERE CLASSIFIED (R26.2 - ICD-10-CM) RESOLVED 08/16/2016 04/18/2023 PERIPHERAL VASCULAR DISEASE, UNSPECIFIED (I73.9 - ICD-10-CM) RESOLVED 08/15/2016 04/18/2023 TYPE 2 DIABETES MELLITUS WIT HOUT COMPLICATIONS (E11.9 - ICD-10-CM) RESOLVED 08/15/2016 04/18/2023 ESSENTIAL (PRIMARY) HYPERTENSION (I10 - ICD-10-CM) RES OLVED 08/15/2016 04/18/2023 CHRONIC OBSTRUCTIVE PULMONAR Y DISEASE, UNSPECIFIED (J44.9 - ICD-10-CM) RESOLVED 08/15/2016 04/18/2023 NONDISPLACED INTERTROCHANTER IC FRACTURE OF RIGHT FEMUR, SUBSEQUENT ENCOUNTER FOR CLOSED FRACTURE WITH ROUTINE HEALING (S72.144D - ICD-10-CM) RESOLVED 08/15/2016 1 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 with home health services [facility] 08/15/2016 04:22 pm EST - 09/18/2016 09:11 am EDT Discharge - Discharged to home or self care - Home - Private home/apt. with home health services [facility] 04/18/2023 04:50 pm EDT - 06/08/2023 12:45 pm EST Immunizations Vaccine Date Influenza 06/25/2022 10:11 am EST TB 2 Step Mantoux Skin Test 05/03/2023 1 2:30 pm EDT TB 2 Step Mantoux Skin Test 04/19/2023 1 0:52 am EDT TB 2 Step [place]oux Skin Test 08/16/2016 0 5:00 pm EST Zostavax (Shingles) 08/29/2015 01:00 am EST Prevnar 13 03/15/2016 12:52 pm EDT Pneumococcal polysaccharide vaccine (PPS V23) 03/22/2014 10:03 am EDT Tdap 11/05/2022 02:29 pm EDT Prevnar 20 06/04/2023 10:00 am EST Social History
--- OUTSIDE RECORDS SUMMARY | 2024-08-06 17:09 | XMS_ITS | Encounter Summary ---
Author Organization [facility] Address [address] [place] [address]. [place], [place] [id number] [place] [address] Care Team Providers Care Hydrological Technical Officer Name Role Phone Dagoberto Coates MD Primary Care Provider Cecil Bertrand MD Unavailable Unavailable Hussein [place] MD Unavailable [phone] Encounter Details Date Type Department Care Team (Late Contact Info) Description 03/12/2019 Hospital Orders Only [facility] [address] [place] [address] [place] [address] Dagoberto Coates MD [address] [place] [phone] Social History Tobacco Use Types Packs/Day Years Used Date Smoking Tobacco: Former Cigarettes Q uit: 2013 Smokeless Tobacco: Never Comments:Smoked 2 - 2.5 pack s per day for 55 years. Quit 2012. Alcohol Use Standard Drinks/Week Comments Not Asked [...] Description 11/09/2024 1:00 PM CDT Office Visit [facility] [address] [place] [address] [place] [address] Dagoberto Coates MD [address] [place] [phone] documented as of this encounter Visit Diagnoses Not on filedocumented in this encounter Additional Health Concerns Infection Onset Date Last Indicated Resolved Time COVID-19 Rule Out 04/12/2020 04/12/2020 04/14/2020 9:42 AM CDT documented as of this encounter Care Teams Hydrological Technical Officer Relationship Specialty Start Date End Date Dagoberto Coates MD [address] [place] [phone] PCP - General FAMILY PRACTICE 05/14/16 Cecil Bertrand MD [address] [place] [phone] CARDIOVASCULAR DISEASE 05/14/16 05/08/20 Hussein [place] MD [address] [place] [address] [place] Compliance Analyst INTERVENTIONAL CARDIOLOGY 05/09/20 documented as of this encounter
--- OUTSIDE RECORDS SUMMARY | 2024-08-06 17:10 | XMS_ITS | Continuity of Care Document ---
Author Organization [facility] Address [address] [place] [address] Phone Care Team Providers Care Store Director Name Role Phone Pamela Jimenez PA-C Unavailable Unavailable Advance Directives Directive Yes / No Effective Date File Name No Information Encounters Encounter Description Practice Location Reason(s) For Visit Diagnoses Date Provider Providers Copied on Encounter [facility], [address] [place] [address], [facility], tel: [phone] [place] chart update (chief complaint) No Information Barbara Santiago. [address] [place] [address], [facility], . tel: [phone] Family History Family Member Type Diagnosis Age At Onset No Information Payers Payer name Insurance type Covered libertarian ID Authoriza tion(s) No Information Social History Type Description Quantity Date Captured Comments Sex Female Smoking Status No Information Chief Complaint And Reason For Visit From encounter dated '09/09/2012 08:23'. chart update (chief complaint) Reason For Referral Reason For Referral No Information History Of Present Illness Encounter Date Complaint History Of Prese nt Illness No Information Functional Status Date Functional Assessmen t No Information Instructions Date Instruction Additional Infor mation No Information Assessments Type Assessment Date No Information Patient Care Teams Name Effective Dates (start - stop) Status Members No Information
--- OUTSIDE RECORDS SUMMARY | 2024-08-06 17:10 | XMS_ITS | Encounter Summary ---
Author Organization [facility] Address [address] [place] [address]. [place] [address] [place] [address] Care Team Providers Care Administrative Assistant Data Entry Name Role Phone Dagoberto Coates MD Primary Care Provider Hussein Robertson MD Unavailable [phone] Encounter Details Date Type Department Care Team (Late Contact Info) Description 04/02/2023 Abstract [facility] [address] [place] [address] [id number] August Cobian MD [address] [place] [phone] Social History Tobacco Use Types Packs/Day Years Used Date Smoking Tobacco: Former Cigarettes Q uit: 2013 Smokeless Tobacco: Never Comments:Smoked 2 - 2.5 pack s per day for 55 years. Quit 2012. Alcohol Use Standard Drinks/Week Comments Not Currently 0 (1 standard drink = 0.6 oz pur e alcohol) Rarely PHQ-2 Answer Date Recorded PHQ-2 Score - If the patient scores above 3, please move on to questions 3-9 2 10/11/2020 Comments No Sex and Gender Information Value Date Recorded [...] Description 11/09/2024 1:00 PM CDT Office Visit [facility] [address] [place] [address] Dagoberto Coates MD [address] [place] [address] documented as of this encounter Visit Diagnoses Not on filedocumented in this encounter Additional Health Concerns Assessment Noted Time PHQ-9 Depression Total Score: 11 021 12:37 PM CDT documented as of this encounter Care Teams Administrative Assistant Data Entry Relationship Specialty Start Date End Date Dagoberto Coates MD [address] [place] [phone] PCP - General FAMILY PRACTICE 05/14/16 Hussein Robertson MD [address] [place] [id number] [place] Ballroom Dance Instructor INTERVENTIONAL CARDIOLOGY 05/09/20 documented as of this encounter
--- OUTSIDE RECORDS SUMMARY | 2024-08-06 17:10 | XMS_ITS | Clinical Summary ---
Author Organization [facility] Address [address] [place] [address]. [place], [place] [address] [place] [id number] Care Team Providers Care Risk Mgr Name Role Phone Dagoberto Coates MD Primary Care Provider Hussein Robertson MD Unavailable [phone] Allergies Active Allergy Reactions Criticality Noted Date Comments Sulfamethoxazole-Trimethoprim GI Upset 2021 Medications aspirin EC 81 MG tablet Take 1 tablet (81 mg total) by mouth daily. 3 Active atorvastatin (LIPITOR) 40 MG tablet Take 1 tablet (40 mg total) by mouth nightly at bedtime. 5 Active budesonide 0.5 MG/2ML nebulizer solutionIndicat ions:COPD, moderate (CMS/HCC HHS/HCC) Take 2 mLs (0.5 mg total) by nebulization 2 (two) times daily. 960 mL 11 9 Active formoterol (PERFOROMIST) 20 MCG/2ML nebulizer solutionIndicat ions:COPD, moderate (CMS/HCC HHS/HCC) Take 2 mLs (20 mcg total) by nebulization 2 (two) times daily. 120 mL 11 9 Active albuterol sulfate HFA (PROAIR HFA) 108 (90 Base) MCG/ACT inhalerIndicati ons:Chronic obstructive pulmonary disease, unspecified (CMS/HCC HHS/HCC) Inhale 2 puffs into the lungs every 6 (six) hours as needed. 1 Inhaler 5 9 Active diphenoxylate-a tropine 2.5-0.025 MG tablet Take 1 tablet by mouth 4 (four) times daily as needed for Diarrhea. Active furosemide (LASIX) 20 MG tablet Take 1 tablet (20 mg total) by mouth. 1 on 2 on -Sat 3 Active losartan (COZAAR) 25 MG tablet Take 0.5 tablets (12.5 mg total) by mouth daily. 45 tablet 1 3 Active albuterol (ACCUNEB) 0.63 MG/3ML nebulizer solution Take 3 mLs (0.63 mg total) by nebulization every 6 (six) hours as needed for Wheezing. Active metoprolol tartrate (LOPRESSOR) 50 MG tablet TAKE 1 AND A HALF TABS BY MOUTH TWICE A DAY DIRECTED 270 tablet 3 3 Active amLODIPine (NORVASC) 5 MG tablet TAKE ONE TABLET BY MOUTH BEDTIME #0001 90 tablet 1 4 Active Active Problems Problem Noted Date Diagnosed Date Humeral fracture 04/09/2023 Humeral head fracture 04/08/2023 Chest pain 05/18/2019 Senile osteoporosis 03/12/2019 Shortness of breath 01/29/2019 Requires supplemental oxygen 01/29/2019 History of squamous cell carcinoma 01/29/2019 Former smoker 02/05/2018 Lung cancer ([facility]) 07/26/2017 S/P lobectomy of lung 07/26/2017 S/P angioplasty with stent 01/09/2017 Pneumonia 01/09/2017 Coronary artery disease invo lving [place] coronary artery of [place] heart without angina pectoris 10/03/2016 H/O acute myocardial infarction 10/03/2016 Carotid disease, bilateral 06/13/2016 Type 2 diabetes mellitus wit hout complication ([facility]) 06/13/2016 PVD (peripheral vascular disease) 06/12/2016 S/P peripheral artery angioplasty 06/12/2016 Essential hypertension 06/12/2016 Mixed hyperlipidemia 06/12/2016 COPD, moderate Tobacco use Cancer ([facility]) Encounters Date Type Department Care Team Description 07/22/2024 Telephone [facility] [address] [place] [address] Hussein Robertson MD Called To Cancel Office Appt. 07/22/2024 Telephone [facility] [place] [address] [place] [address] Hussein Robertson MD Called To Cancel Office Appt. 05/29/2024 Orders Only [facility] [address] [place] [address] Rajinder Panda MD 05/18/2024 2:00 PM METEOROLOGICAL ENGINEER Office Visit [facility] [address] [place] [address] Rajinder Panda MD CKD Follow-up 05/18/2024 Travel 05/12/2024 10:35 AM METEOROLOGICAL ENGINEER - 05/12/2024 11:59 PM METEOROLOGICAL ENGINEER Hospital Encounter [facility] [address] [place] [address] Rajinder Panda MD Discharge Disposition: Home or Self Care (Routine Discharge) 05/12/2024 Travel from Last 3 Months Family History Medical History Relation Comments CABG Brother CABG Mother Stroke Mother Coronary artery disease Other Diabetes Other Stroke Paternal Grandmother Relation Status Comments Brother Father Mother of CABG Other Family history i s positive for premature coronary heart disease, Family history is positive for diabetes Paternal Grandmother Social History Tobacco Use Types Packs/Day Years Used Date Smoking Tobacco: Former Cigarettes Q uit: 2013 Smokeless Tobacco: Never Tobacco Cessation:Counseling Given: Not Answered Comments:Smoked 2 - 2.5 packs per day for 55 years. Quit 2012. Alcohol Use Standard Drinks/Week Comments Not Currently 0 (1 standard drink = 0.6 oz pur e alcohol) Rarely Humiliation, Afraid, Rape, and Kick questionnair e Answer Date Recorded Within the last year, have y ou been afraid of your partner or ex-partner? No 04/09/2023 Within the last year, have y ou been humiliated or emotionally abused in other ways by your partner or ex-partner? No Within the last year, have y ou been kicked, hit, slapped, or otherwise physically hurt by your partner or ex-partner? No 04/09/2023 Within the last year, have y ou been raped or forced to have any kind of sexual activity by your partner or ex-partner? No 04/09/2023 Social Connection and Isolat ion Panel [NHANES] Answer Date Recorded In a typical week, how many times do you talk on the phone with family, friends, or neighbors? More than three times a week 04/09/2023 How often do you get togethe r with friends or relatives? More than three times a week 04/09/2023 How often do you attend chur ch or hindu services? 1 to 4 times per year 04/09/2023 Do you belong to any clubs o r organizations such as jainism groups, unions, fraternal or athletic groups, or school groups? No 04/09/2023 How often do you attend meet ings of the clubs or organizations you belong to? Never 04/09/2023 Are you , , di vorced, , never , or living with a partner? Patient declined 04/09/2023 Overall Financial Resource Strain (CARDIA) Answe r Date Recorded How hard is it for you to pa y for the very basics like food, housing, medical care, and heating? Not hard at all 04/09/2023 PHQ-2 Answer Date Recorded PHQ-2 Score - If the patient scores above 3, please move on to questions 3-9 2 10/11/2020 [facility] - Occupational Stress Questionnaire Answer Date Recorded Do you feel stress - tense, restless, nervous, or anxious, or unable to sleep at night because your mind is troubled all the time - these days? Only a little 04/09/2023 Hunger Vital Sign Answer Date Recorded Within the past 12 months, y ou worried that your food would run out before you got the money to buy more. Never true 04/09/20 23 Within the past 12 months, t he food you bought just didn't last and you didn't have money to get more. Never true 04/09/2023 PRAPARE - Transportation Answer Date Re corded In the past 12 months, has l ack of transportation kept you from medical appointments or from getting medications? No 09/2022 In the past 12 months, has l ack of transportation kept you from meetings, work, or from getting things needed for daily living? No 04/09/2023 Housing Stability Vital Sign Answer Williams e Recorded In the last 12 months, was t here a time when you were not able to pay the mortgage or rent on time? No 04/09/2023 In the last 12 months, how many places have you lived? 1 04/09/2023 In the last 12 months, was t here a time when you did not have a steady place to sleep or slept in a skilled nursing (including now)? No 04/09/2023 Comments No Sex and Gender Information Value Date Recorded Sex Assigned at Not on file Legal Sex Female 1:16 AM CDT Gender Identity Not on file Sexual Orientation Not on file Occupation Industry Job Start Date Job End Date Retired Not on file Not on file Not on file Last Filed Vital Signs Vital Sign Reading Time Taken Comments Blood Pressure 142/52 05/18/2024 1:43 PM METEOROLOGICAL ENGINEER Pulse 66 05/18/2024 1:43 PM METEOROLOGICAL ENGINEER Temperature 37.1 ??C (98.8 ??F) 04/18/2023 8:04 AM CD T Respiratory Rate 18 05/18/2024 1:43 PM METEOROLOGICAL ENGINEER Oxygen Saturation 95% 06/26/2023 2:49 PM METEOROLOGICAL ENGINEER 3 L O2 via NC Inhaled Oxygen Concentration - - Weight 64.4 kg (142 lb) 05/18/2024 1:43 PM METEOROLOGICAL ENGINEER Height 160 cm (5' 3 ) 05/18/2024 1:43 PM METEOROLOGICAL ENGINEER Body Mass Index 25.15 05/18/2024 1:43 PM METEOROLOGICAL ENGINEER Plan of Treatment Upcoming Encounters Date Type Department Care Team (Late st Contact Info) Description 11/09/2024 1:00 PM CDT Office Visit [facility] [address] [place] [address] Dagoberto Coates MD [address] [place] [phone] Health Maintenance Due Date Last Done Comments ASCVD Statin 1940 Kidney Health Evaluation 1940 Hemoglobin A1C 1938 Diabetes: Retinopathy Eye Exam 1956 Annual Medicare Wellness Visit 12/06/2003 RSV Immunization or 60+ Years (1 - 1-dose 75+ series) 2013 ASCVD LDL 04/23/2015 04/23/2014 Lipid Panel 04/23/2015 04/23/2014 Zoster Vaccines (2 of 2) 10/24/2015 08/29/2015 COVID-19 Vaccine (1 - 2023-2 5 season) 2024 Influenza Adult (#1) 2024 DTaP, Tdap and Td Vaccines ( 2 - Tdap) 11/05/2032 11/05/2022 Pneumococcal Vaccine: 65+ Years Completed 06/04/2023, 03/15/2016, 03/22/2014 Meningococcal B Vaccine Aged Out No l onger eligible based on patient's age to complete this topic Meningococcal Vaccine Aged Out No muna shasta eligible based on patient's age to complete this topic RSV Immunizations Under 20 Months Aged Out No longer eligible b ased on patient's age to complete this topic Medical Devices Implanted Type Area Rotary Pump Operator Device Identifier Shelf Expiration Date Model / Serial / Lot Cement Bone 26/04 Fast Set Depuy - [id number] Implanted:Qty: 1 on 04/15/2023 by Dave Gilbert MD at [facility] Cement Implant Right: Shoulder DEPUY [id number] 05/07/2025 [id number] / / [id number] Plug Cement Irena Frankie Medullary 16mm - [id number] Implanted:Qty: 1 on 04/15/2023 by Dave Gilbert MD at [facility] Cement Implant Right: Shoulder [employer] [id number] 08/20/2026 [id number] / / [id number] Screw Irena 4.75 Ti Hex Head Reverse Shoulder 15mm - [id number] Implanted:Qty: 1 on 04/15/2023 by Dave Gilbert MD at [facility] Screw Right: Shoulder [employer] [id number] 03/10/2033 [id number] / / [id number] Screw Irena 4.75 Ti Hex Head Reverse Shoulder 15mm - [id number] Implanted:Qty: 1 on 04/15/2023 by Dave Gilbert MD at [facility] Screw Right: Shoulder [employer] [id number] 03/14/2033 [id number] / / [id number] Screw Bone Comprehensive Titanium 3.5 Mm L25 Mm Od6.5 Mm Bassam - [id number] Implanted:Qty: 1 on 04/15/2023 by Dave Gilbert MD at [facility] Screw Right: Shoulder [employer] [id number] 01/31/2033 [id number] / / [id number] Screw Fixed Locking Biomet 4.75 X 30mm - [id number] Implanted:Qty: 1 on 04/15/2023 by Dave Gilbert MD at [facility] Screw Right: Shoulder [employer] [id number] 03/10/2033 [id number] / / [id number] Screw Fixed Locking Biomet 4.75 X 30mm - [id number] Implanted:Qty: 1 on 04/15/2023 by Dave Gilbert MD at [facility] Screw Right: Shoulder [employer] [id number] 02/22/2033 [id number] / / [id number] Glenosphere Comprehensive Biomet - [id number] Implanted:Qty: 1 on 04/15/2023 by Dave Gilbert MD at [facility] Shoulder Components Right: Shoulder [employer] [id number] 01/18/2033 [id number] / / [id number] Baseplate Glenoid Comprehensive 25 Mm Mini Taper Adapter Rev - [id number] Implanted:Qty: 1 on 04/15/2023 by Dave Gilbert MD at [facility] Shoulder Components Right: Shoulder [employer] [id number] 02/11/2033 [id number] / / [id number] Identity Shoulder Humeral Tray Implanted:Qty: 1 on 04/15/2023 by Dave Gilbert MD at [facility] Right: Shoulder [employer] [id number] 04/16/2032 [id number] / / [id number] Identity Humeral Stem Implanted:Qty: 1 on 04/15/2023 by Dave Gilbert MD at [facility] Right: Shoulder [employer] [id number] 08/29/2032 [id number] / / [id number] Comprehensive Vivacit Highly Crosslinked Polyethylene Implanted:Qty: 1 on 04/15/2023 by Dave Gilbert MD at [facility] Right: Shoulder [employer] [id number] 02/21/2028 [id number] / / [id number] Explanted Type Area Rotary Pump Operator Device Identifier Shelf Expiration Date Model / Serial / Lot Drill Bit Biomet 2.7mm Peripheral Screw - [id number] Explanted:Qty: 1 on 04/15/2023 by Dave Gilbert MD at [facility] Drill Right: Shoulder [employer] 03/02/2033 [id number] / / [id number] Pin Fixation 9in 3.2mm Steinmann - [id number] Explanted:Qty: 1 on 04/15/2023 at [facility] Pin Right: Shoulder [employer] 02/06/2033 [id number] / / [id number] Procedures Procedure Name Priority Date/Time Associated Diagnosis Comments VITAMIN D, 25 OH Routine 05/12/2024 10:5 2 AM METEOROLOGICAL ENGINEER Stage 3b chronic kidney disease (CKD) ([facility]) Uncontrolled hypertension Hypercalcemia PTH - INTACT Routine 05/12/2024 10:52 AM METEOROLOGICAL ENGINEER Stage 3b chronic kidney disease (CKD) ([facility]) Uncontrolled hypertension Hypercalcemia RENAL FUNCTION PANEL Routine 05/12/2024 10:52 AM METEOROLOGICAL ENGINEER Stage 3b chronic kidney disease (CKD) ([facility]) Uncontrolled hypertension Hypercalcemia CBC W/DIFF AUTOMATED Routine 05/12/2024 10:52 AM METEOROLOGICAL ENGINEER Stage 3b chronic kidney disease (CKD) ([facility]) Uncontrolled hypertension Hypercalcemia LIPID PANEL Routine 04/23/2014 12:00 AM CDT from Last 3 Months or Most Recently Relevant to Health Maintenance Results * (ABNORMAL) PTH - INTACT (05/12/2024 10:52 AM METEOROLOGICAL ENGINEER) PTH 210.4(H) 18.4 - 80.1 PG/ML 05/13/2024 6:05 PM [facility] Comment: ASSAY PERFORMED BY CHEMILUMINESCENCE METHODOLOGY USING SIEMENS Better WeekdaysAUR XPT REAGENT. PATIENT RESULTS DETERMINED BY ASSAYS USING DIFFERENT MANUFACTURERS FOR METHODS MAY NOT BE COMPARABLE. 05/12/2024 10:5 2 AM METEOROLOGICAL ENGINEER Rajinder Panda MD LABORATORY Final Result [facility] [address] [place] [address], [id number] * (ABNORMAL) RENAL FUNCTION PANEL (05/12/2024 10:52 AM METEOROLOGICAL ENGINEER) SODIUM S/P/B 141 136 - 145 MMOL/L 05/12/2024 11:20 AM [facility] POTASSIUM S/P/B 4.7 3.5 - 5.1 MMOL/L 05/12/2024 11:20 AM [facility] CHLORIDE S/P/B 103 98 - 107 MMOL/L 05/12/2024 11:20 AM [facility] CO2 31.3 21.0 - 32.0 MMOL/L 05/12/2024 11:20 AM [facility] GLUCOSE 158(H) 70 - 99 MG/DL 05/12/2024 11:20 AM [facility] Comment: FASTING GLUCOSE 100 TO 125 MG/DL IS CONSISTENT WITH IMPAIRED FASTING GLUCOSE. FASTING GLUCOSE >125 MG/DL IS CONSISTENT WITH DIABETES. RANDOM GLUCOSE >200 MG/DL WITH HYPERGLYCEMIC SYMPTOMS IS CONSISTENT WITH DIABETES. PER ADA GUIDELINES BUN 40(H) 6 - 24 MG/DL 05/12/2024 11:20 AM [facility] CREATININE S/P/B 1.54(H) 0.55 - 1.02 MG/DL 05/12/2024 11:20 AM [facility] CALCIUM S/P/B 9.9 8.4 - 10.5 MG/DL 05/12/2024 11:20 AM [facility] ALBUMIN S/P/B 3.2(L) 3.4 - 5.0 G/DL 05/12/2024 11:20 AM [facility] PHOSPHORUS 4.0 2.6 - 4.7 MG/DL 05/12/2024 11:20 AM [facility] ANION GAP 6.7 5.0 - 15.0 MMOL/L 05/12/2024 11:20 AM [facility] OSMOLALITY (CALC) 305 MOSM/KG 024 11:20 AM [facility] Comment:REFERENCE RANGE NOT ESTABLISHED GFR ESTIMATE 33(L) >89 ML/MIN/1. 73 M2 05/12/2024 11:20 AM [facility] GFR NOTES GFR REFERENCE S: 05/12/2024 11:20 AM [facility] Comment: THE ESTIMATED GFR IS CALCULATED USING THE 2020 CKD-EPI EQUATION. THE FOLLOWING CATEGORIES FOR GRADING RENAL FUNCTION ARE RECOMMENDED BY THE INTERNATIONAL SOCIETY OF NEPHROLOGY (KDIGO 2012 CLINICAL PRACTICE GUIDELINE). G1,NORMAL OR HIGH: >89 ml/min/1.73 m2 G2,MILDLY DECREASED: 60-89 ml/min/1.73 m2 G3A,MILDLY TO MODERATELY DECREASED: 45-59 ml/min/1.73 m2 G3B,MODERATELY TO SEVERELY DECREASED: 30-44 ml/min/1.73 m2 G4,SEVERELY DECREASED: 15-29 ml/min/1.73 m2 G5,KIDNEY FAILURE: <15 ml/min/1.73 m2 05/12/2024 10:5 2 AM METEOROLOGICAL ENGINEER Rajinder Panda MD LABORATORY Final Result [facility] [place] [address], * (ABNORMAL) CBC W/DIFF AUTOMATED (05/12/2024 10:52 AM METEOROLOGICAL ENGINEER) WBC 8.84 4.00 - 10.80 x10'3/uL 05/12/2024 11:04 AM [facility] RBC 4.35 4.10 - 5.40 x10'6/uL 05/12/2024 11:04 AM [facility] HGB 11.6(L) 12.0 - 16.0 G/DL 05/12/2024 11:04 AM [facility] HCT 37.1 36.0 - 47.0 % 05/12/2024 11:04 AM [facility] MCV 85.3 78.0 - 100.0 FL 05/12/2024 11:04 AM [facility] MCH 26.7(L) 27.0 - 31.0 PG 05/12/2024 11:04 AM [facility] MCHC 31.3(L) 33.0 - 36.0 G/DL 05/12/2024 11:04 AM [facility] RDW 14.1 11.5 - 14.5 % 05/12/2024 11:04 AM [facility] PLT 225 150 - 350 x10'3/uL 05/12/2024 11:04 AM [facility] MPV 9.5 7.4 - 10.4 FL 05/12/2024 11:04 AM [facility] CBC COMMENT NORMAL REFERENCE RANGE NOT ESTABLISHED FOR THE PROPORTIONAL LEUKOCYTE DIFFERENTIAL. 05/12/2024 11:04 AM [facility] NEUTROPHILS % 75.6 % 05/12/2024 11:04 AM [facility] LYMPHOCYTES % 14.9 % 05/12/2024 11:04 AM [facility] MONOCYTES % 5.7 % 05/12/2024 11:04 AM [facility] EOSINOPHILS % 2.3 % 05/12/2024 11:04 AM [facility] BASOPHILS % 0.6 % 05/12/2024 11:04 AM [facility] IMMATURE GRANS % 0.9 % 05/12/20 11:04 AM [facility] NRBC % 0.0 % 05/12/2024 11:04 AM [facility] ABS. NEUTROPHILS 6.69 1.60 - 8.30 x10'3/uL 05/12/2024 11:04 AM [facility] ABS. LYMPHOCYTES 1.32 0.80 - 4.70 x10'3/uL 05/12/2024 11:04 AM METEOROLOGICAL ENGINEER [facility] ABS. MONOCYTES 0.50 0.00 - 1.50 x10'3/uL 05/12/2024 11:04 AM METEOROLOGICAL ENGINEER [facility] ABS. EOSINOPHILS 0.20 0.00 - 0.40 x10'3/uL 05/12/2024 11:04 AM METEOROLOGICAL ENGINEER [facility] ABS. BASOPHILS 0.05 0.00 - 0.20 x10'3/uL 05/12/2024 11:04 AM METEOROLOGICAL ENGINEER [facility] ABS. IMMATURE GRANULOCYTES 0.08(H) 0.00 - 0.03 x10'3/uL 05/12/2024 11:04 AM [facility] ABS. NUCLEATED RBC'S 0.00 0.00 - 0.01 x10'3/uL 05/12/2024 11:04 AM [facility] 05/12/2024 10:5 2 AM METEOROLOGICAL ENGINEER Rajinder Panda MD LABORATORY Final Result [facility] [place] [address], * VITAMIN D, 25 OH (05/12/2024 10:52 AM METEOROLOGICAL ENGINEER) VITAMIN D 25 HYDROXY TOTAL S/P/B 35.4 20.0 - 50.0 NG/ML 05/13/2024 6:03 PM METEOROLOGICAL ENGINEER [facility] Comment: <10 ng/mL (Severe deficiency) 10 TO 19 ng/mL (Mild to Moderate deficiency) 20 TO 50 ng/mL (Optimum levels) 51 TO 80 ng/mL (Increased risk of hypercalciuria) >80 ng/mL (Toxicity possible) 05/12/2024 10:5 2 AM METEOROLOGICAL ENGINEER us Rajinder Panda MD LABORATORY Final Result [facility] [address] [place] [id number], [id number] * LIPID PANEL (04/23/2014 12:00 AM CDT) TRIGLYCERIDES 175 0 - 150 mg/dl MEDINFORMATIX TO EPIC CONVERSION CHOLESTEROL 128 0 - 200 mg/dl MEDIN[employer] TO EPIC CONVERSION HDL 50 40 - 59 mg/dl MEDIN[employer] TO EPIC CONVERSION LDL CONVERSION 43 0 - 100 mg/dl MEDINFORMATIX TO EPIC CONVERSION DIRECT LDL 63 0 - 100 mg/dL MEDIN[employer] TO EPIC CONVERSION CHOL/HDL RATIO 2.6 <4.0 (Calc) MEDINFORMATIX TO EPIC CONVERSION NON HDL CHOLESTEROL 78 0 - 130 mg/dL MEDINFORMAT[employer] TO EPIC CONVERSION 04/23/2014 04/23/2014 Narrative MEDINFORMATIX TO EPIC CONVERSION - 04/30/2014 8:46 AM CDT Reviewed by JENNIFER Apr 30 2014 ??8:47:25:000AM us Generic Conversion Md [facility] Final R esult MEDINFORMATIX TO EPIC CONVERSION from Last 3 Months or Most Recently Relevant to Health Maintenance Insurance GENERIC - COMMERCIAL [facility] [employer] MEDICARE GENERIC - COMMERCIAL MEDICARE MEDICARE GENERIC - COMMERCIAL Advance Directives * DNR (Latest Code Status on File) Date Activated Date Inactivated Comments 04/09/2023 12:19 AM 04/18/2023 2:04 PM Care Teams Risk Mgr Relationship Specialty Start Date End Date Dagoberto Coates MD [address] [place] [phone] PCP - General FAMILY PRACTICE 05/14/16 Hussein Robertson MD [address] [place] [id number] [place] Technical Sales Representatives INTERVENTIONAL CARDIOLOGY 05/09/20
[2024-08-06 17:30] LABS: Modified Allen's Test Pass; Site Drawn RIGHT RADIAL
[2024-08-06 17:31] LABS: Device NASAL CANNULA
--- NOTE | 2024-08-06 18:05 | PM.IMHP ---
H&P: HPI History of Present Illness Date/Time: 08/06/24 18:05 Chief Complaint: Weakness and shortness of breath. Narrative: This is a pleasant 83-year-old female with chronic hypoxic respiratory failure 3 L nasal cannula, chronic obstructive pulmonary disease, and chronic kidney disease stage 3 who presented to the emergency department via EMS from home for evaluation weakness and shortness of breath. She was exposed to influenza and is concerned that she may have the same with symptoms to include cough, weakness, and shortness of breath. She also mentions having a urinary tract infection recently and she is not certain if it was completely cleared up with antibiotics as she still has some mild symptoms. She denies fever, headache, sore throat, chest and pleuritic pain, hemoptysis, abdominal pain, nausea, vomiting, diarrhea, edema, and calf pain. She did get the flu shot last fall. In the ED: She was afebrile on arrival with stable vital signs. Labs are significant for WBC count of 7.1, hemoglobin 11.6, BUN 43, creatinine 1.55, glucose 148, proBNP 3920. Urinalysis was positive for 2+ protein, 2+ leukocyte esterase, and 21 to 50 WBC per high-power field. She tested positive for influenza A. Chest x-ray showed borderline heart size and mild opacities in the bilateral lower lung zones which could be pulmonary edema, atelectasis, or pneumonia. EKG showed sinus bradycardia with occasional supraventricular premature complexes and right bundle-branch block. She was given a nebulizer treatment and continues to wheeze and feel short of breath and she is being admitted in this setting. She also received ceftriaxone 1 g for possible urinary tract infection and she is being admitted in this setting for further treatment. Review of Systems Review of Systems: 12 systems were reviewed and are negative except for as per HPI. REPLACED BY [facility] Past Medical History Medical History Chronic kidney disease, stage 3 Chronic respiratory failure with hypoxia, on home oxygen therapy Chronic obstructive pulmonary disease Social History Social History (Updated 08/06/24 @ 18:27 by Daniela Sanz PA-C) Social History: Surrogate medical decision maker: Anthony Awan, son ([phone]). Code status: Full code. Meds Home Medications and Allergies Allergies Allergy/AdvReac Type Severity Reaction Status Date / Time No Known Allergies Allergy Verified 08/06/24 11:10 Vital Signs Vital Signs - 24 hr 08/06/24 11:10 08/06/24 13:59 08/06/24 14:05 Temperature 97.6 F 97.8 F Pulse Rate 76 48 L Respiratory Rate 22 H 28 H Blood Pressure 143/39 H 148/81 H Pulse Oximetry 96 98 96 Oxygen Delivery Nasal Cannula Nasal Cannula Oxygen Flow Rate 3 3 08/06/24 16:55 08/06/24 16:55 Temperature Pulse Rate 67 Respiratory Rate 20 Blood Pressure Pulse Oximetry 94 Oxygen Delivery Oxygen Flow Rate Exam Narrative: General: Mildly ill-appearing elderly female lying on her left side in bed in no acute distress. Weight: 61.8 kg. BMI: 24.1. HEENT: PERRL, EOMI. Sclera anicteric. Tacky mucous membranes. Neck: Supple. Respiratory: Respirations are nonlabored and she is speaking full sentences. Lung sounds are coarse with expiratory wheezing. Cardiovascular: Regular rate and rhythm with S1-S2. Gastrointestinal: Abdomen is soft, nontender, and nondistended with positive bowel sounds. Skin: Warm and dry. No rash or lesions on limited exam. Extremities: No cyanosis, clubbing, or significant edema. Radial and pedal pulses intact. Neurological: Alert. Cranial nerves 2-12 are grossly intact. No gross focal deficits to casual conversation. Psychiatric: Pleasant and cooperative with normal mood and affect. H&P: Results Labs Labs: Short CBC 08/06/24 Range/Units 12:03 WBC 7.1 (4.5-10.0) K/mm3 Hgb 11.6 L (12.0-15.0) g/dL Hct 37.0 (37.0-47.0) % Plt Count 233 (150-375) k/mm3 BMP 08/06/24 12:03 Sodium 140 Potassium 4.9 Chloride 102 Carbon Dioxide 28 BUN 43 H Creatinine 1.55 H Glucose 148 H Calcium 10.0 Liver Function 08/06/24 Range/Units 12:03 Total Bilirubin 0.6 (0.2-1.3) mg/dL AST 20 (14-36) U/L ALT 10 (6-35) U/L Alkaline Phosphatase 107 (38-126) U/L Albumin 3.7 (3.5-5.1) g/dL Urine 08/06/24 Range/Units 13:21 Urine Color Yellow (Yellow) Urine Appearance Clear (Clear) Urine pH 5.0 (5.0-9.0) Ur Specific [place] 1.016 (1.001-1.035) Urine Protein 2+ H (Negative) mg/dL Urine Glucose (UA) Negative (Negative) mg/dL Impressions Chest X-Ray 08/06/24 13:38 IMPRESSION: 1. Mild opacities in the bilateral lower lung zones which could represent mild pulmonary edema, atelectasis or pneumonia. 2. Postoperative changes in the right infrahilar region with blunting at the posterior sulcus which could represent either postoperative atelectasis/scarring versus a small right pleural effusion. 2. Borderline heart size. Assessment and Plan Assessment and plan (1) Influenza A: Code(s): J10.1 - Influenza due to other identified influenza virus with other respiratory manifestations Status: Acute (2) COPD exacerbation: Code(s): J44.1 - Chronic obstructive pulmonary disease with (acute) exacerbation Status: Acute (3) Chronic respiratory failure with hypoxia, on home oxygen therapy: Code(s): J96.11 - Chronic respiratory failure with hypoxia; Z99.81 - Dependence on supplemental oxygen Status: Acute (4) Pyuria: Code(s): R82.81 - Pyuria Status: Acute (5) Chronic kidney disease, stage 3: Code(s): N18.30 - Chronic kidney disease, stage 3 unspecified Status: Acute Plan The patient presented to the emergency department with complaints of shortness of breath and weakness as detailed in HPI. Labs, imaging, EKG, and all reports were personally reviewed. Clinically she has a COPD exacerbation, precipitated by influenza A. She has been started on scheduled bronchodilators and methylprednisolone. She is at her baseline oxygen requirements. Urine was positive for 2+ leukocyte esterase and 21 to 50 WBC and she reports having continued symptoms despite completing a course of antibiotics a couple of weeks ago. Continue ceftriaxone, pending urine culture. She reports a history of chronic kidney disease but she has never been here before and her baseline creatinine is unknown. Vital signs were reviewed and they are stable. Her home medications will be reviewed and resumed as appropriate. Findings and treatment plan were discussed with the patient. Questions were solicited and answered to satisfaction. The patient's medical management will be taken over by the hospitalist team in a.m. Quality VTE Prophylaxis VTE prophylaxis: pharmacologic ordered Hospitalist MIPS Advance Care Plan I have confirmed that the patient's Advanced Care Plan is present, code status is documented, or surrogate decision maker is listed in patient medical record.: Yes Medication Reconciliation I have utilized all available resources to obtain, update and review the patients current medications (includes all prescriptions, OTC, herbals, cannabis, and nutritional supplements).: Yes
[2024-08-06] MEDS: AZITHROMYCIN 250 MG TABLET 500 MG PO (19:03)
[2024-08-06] MEDS: OSELTAMIVIR PHOSPHATE 30 MG CAPSULE PO (19:03)
[2024-08-06] MEDS: IPRATROPIUM 0.5 MG/ALBUTEROL SULFATE 2.5 MG AMPUL.NEB 3 ML INHALATION (20:32)
--- NOTE | 2024-08-06 22:37 | ADMGEN ---
This patient, Demetria Awan, was admitted to [facility] Surg Room 312-01. Patient/family oriented to hospital policies and general routines including ID bracelet, bed and alarms, visiting hours, pain management, procedures, bathroom and other care routines, personal items, smoking policy, room service/diet, and visiting hours. Information on how to activate the Rapid Response Team has been discussed. Patient/Family are encouraged to report perceived risks to care and to ask questions if they do not understand what they are told or what they should do.
[2024-08-06] MEDS: guaiFENesin 12 HR 600 MG TABCR 1200 MG PO (23:15)
[2024-08-07] VITALS (11 sets, daily range): BP systolic 113–149; BP diastolic 45–116; PULSE 64–86; RESP 18–24; TEMP 36.4–37.3; O2SAT 92–98
[2024-08-07] MEDS: IPRATROPIUM 0.5 MG/ALBUTEROL SULFATE 2.5 MG AMPUL.NEB 3 ML INHALATION ×4 (02:00→20:18)
[2024-08-07] MEDS: methylPREDNISolone SOD SUCC 125 MG VIAL 60 MG IV PUSH ×3 (06:00→17:41)
[2024-08-07 06:49] LABS: Hematocrit 32.7 % (37.0-47.0); Hemoglobin 10.1 g/dL (12.0-15.0); Immature Granulocyte Absolute 0.04 K/mm3 (0.00-0.031); Immature Granulocyte Percent A 0.8 % (0-0.5); Lymphocytes Absolute Auto 0.53 K/mm3 (0.9-3.2); Lymphocytes Percent Auto 10.6 % (18.3-44.2); Mean Corpuscular HGB Conc 30.9 g/dl (32-36); Mean Corpuscular Volume 84.3 fl (80-100); Mean Platelet Volume 10.2 fl (7.4-10.4); Monocytes Percent Auto 0.8 % (2.6-8.5); Neutrophils Absolute Auto 4.4 K/mm3 (1.3-6.7); Neutrophils Percent Auto 87.8 % (45.5-73.1); Platelet Count Result 204 k/mm3 (150-375); Red Blood Count 3.88 M/mm3 (4.2-5.4); Red Cell Distribution Width 14.4 % (11.5-14.5)
[2024-08-07 07:03] LABS: Anion Gap 9 mmol/L (4-12); Blood Urea Nitrogen 43 mg/dL (7-17); Calcium 9.8 mg/dL (8.4-10.2); Carbon Dioxide 24 mmol/L (22-30); Chloride 103 mmol/L (98-107); Estimated CRCL calculation 20 ml/min; Estimated Glomerular Filt Rate 33; Glucose 306 mg/dL (65-110); Magnesium 1.7 mg/dL (1.6-2.3); Potassium 4.5 mmol/L (3.4-5.0); Sodium 136 mmol/L (137-145)
[2024-08-07] MEDS: LOSARTAN POTASSIUM 25 MG TABLET PO (09:39)
[2024-08-07] MEDS: FUROSEMIDE 20 MG TABLET PO (09:39)
[2024-08-07] MEDS: guaiFENesin 12 HR 600 MG TABCR 1200 MG PO ×2 (09:39→21:02)
[2024-08-07] MEDS: ENOXAPARIN 30 MG/0.3 ML SYRINGE SUB-Q (09:39)
[2024-08-07] MEDS: AZITHROMYCIN 250 MG TABLET PO (09:40)
[2024-08-07] MEDS: METOPROLOL TARTRATE 50 MG TAB PO (09:40)
[2024-08-07 10:42] LABS: MRSA (PCR) NOT DETECTED (NOT DETECTE)
[2024-08-07 12:39] LABS: Glucose Point of Care 247 mg/dl (65-105)
--- NOTE | 2024-08-07 13:38 | P.PNIM_ITS ---
Progress Note: A&P Assessment and Plan (1) Influenza A: Code(s): J10.1 - Influenza due to other identified influenza virus with other respiratory manifestations Status: Acute (2) COPD exacerbation: Code(s): J44.1 - Chronic obstructive pulmonary disease with (acute) exacerbation Status: Acute (3) Chronic respiratory failure with hypoxia, on home oxygen therapy: Code(s): J96.11 - Chronic respiratory failure with hypoxia; Z99.81 - Dependence on supplemental oxygen Status: Acute (4) Pyuria: Code(s): R82.81 - Pyuria Status: Acute (5) Chronic kidney disease, stage 3: Code(s): N18.30 - Chronic kidney disease, stage 3 unspecified Status: Acute Plan The patient presented to the emergency department with complaints of shortness of breath and weakness as detailed in HPI. Labs, imaging, EKG, and all reports were personally reviewed. Clinically she has a COPD exacerbation, precipitated b y influenza A. She has been started on scheduled bronchodilators and methylprednisolone. She is at her baseline oxygen requirements. Urine was positive for 2+ leukocyte esterase and 21 to 50 WBC and she reports having continued symptoms despite completing a course of antibiotics a couple of weeks ago. Continue ceftriaxone, pending urine culture. She reports a history of chronic kidney disease but she has never been here before and her baseline creatinine is unknown. Vital signs were reviewed and they are stable. UTI UA reviewed Urine culture pending Continue ceftriaxone Influenza Tamiflu for 5 days Nasal cannula 2 L Immunocompromise due to lung cancer Continue ceftriaxone and azithromycin DuoNeb q.6 hours Methylprednisone 60 mg IV push q.6 hours Subjective Date/time seen: 08/07/24 13:38 Interval history: Patient reports she is a smoker and history of lung cancer with possible right lobectomy and also patient has multiple cardiac stents and stents in the bilateral leg. Patient is currently doing well. Currently she is getting treated for UTI and influenza. Review of Systems Review of Systems: 12 systems were reviewed and are negativ e except for as per HPI. Exam Narrative: General: Mildly ill-appearing elderly female lying on her left side in bed in no acute distress. Weight: 61.8 kg. BMI: 24.1. HEENT: PERRL, EOMI. Sclera anicteric. Tacky mucous membranes. Neck: Supple. Respiratory: Respirations are nonlabored and she is speaking full sentences. Lung sounds are coarse with expiratory wheezing. Cardiovascular: Regular rate and rhythm with S1-S2. Gastrointestinal: Abdomen is soft, nontender, and nondistended with positive bowel sounds. Skin: Warm and dry. No rash or lesions on limited exam. Extremities: No cyanosis, clubbing, or significant edema. Radial and pedal pulses intact. Neurological: Alert. Cranial nerves 2-12 are grossly intact. No gross focal deficits to casual conversation. Psychiatric: Pleasant and cooperative with normal mood and affect. Objective Data Vital Signs Vital Signs: Vital Signs - 24 hr 08/06/24 13:59 08/06/24 14:05 08/06/24 14:17 Temperature 97.8 F Pulse Rate 48 L 55 L Respiratory Rate 28 H 19 Blood Pressure 148/81 H 156/138 H Pulse Oximetry 98 96 100 Oxygen Delivery Nasal Cannula Oxygen Flow Rate 3 08/06/24 14:30 08/06/24 14:46 08/06/24 14:47 Temperature 97.8 F Pulse Rate 56 L 56 L 66 Respiratory Rate 15 14 17 Blood Pressure 161/62 H Pulse Oximetry 99 93 95 Oxygen Delivery Oxygen Flow Rate 08/06/24 15:16 08/06/24 15:54 08/06/24 16:16 Temperature 97.9 F 97.8 F Pulse Rate 54 L 57 L 56 L Respiratory Rate 24 H 25 H 19 Blood Pressure 137/62 156/50 H 154/48 H Pulse Oximetry 98 97 94 Oxygen Delivery Oxygen Flow Rate 08/06/24 16:33 08/06/24 16:55 08/06/24 16:55 Temperature 97.7 F Pulse Rate 56 L 67 Respiratory Rate 22 H 20 Blood Pressure 122/89 Pulse Oximetry 94 94 Oxygen Delivery Oxygen Flow Rate 08/06/24 17:32 08/06/24 18:30 08/06/24 20:15 Temperature 97.8 F 97.6 F Pulse Rate 78 92 109 H Respiratory Rate 23 H 20 19 Blood Pressure 160/48 H 132/68 Pulse Oximetry 97 96 96 Oxygen Delivery Oxygen Flow Rate 08/06/24 20:31 08/06/24 20:34 08/06/24 20:40 Temperature Pulse Rate 111 H 111 H 110 H Respiratory Rate 20 21 H 22 H Blood Pressure 116/73 Pulse Oximetry Oxygen Delivery Oxygen Flow Rate 08/06/24 21:59 08/06/24 23:20 08/07/24 05:02 Temperature 97.7 F 97.5 F L Pulse Rate 110 H 110 H 69 Respiratory Rate 18 18 20 Blood Pressure 125/85 113/69 Pulse Oximetry 94 94 94 Oxygen Delivery Nasal Cannula Oxygen Flow Rate 3 08/07/24 07:27 08/07/24 07:28 08/07/24 07:38 Temperature Pulse Rate 68 86 Respiratory Rate 18 18 Blood Pressure Pulse Oximetry 95 Oxygen Delivery Nasal Cannula Oxygen Flow Rate 4 08/07/24 09:40 Temperature Pulse Rate 71 Respiratory Rate Blood Pressure Pulse Oximetry Oxygen Delivery Oxygen Flow Rate Intake/Output Intake/Output: Intake & Output 08/04/24 08/05/24 08/06/24 08/07/24 23:59 23:59 23:59 23:59 Intake Total 50 1030 Balance 50 1030 Meds/Results Medications: Active Medications Generic Name Dose Route Start Last Admin Trade Name Freq PRN Reason Stop Dose Admin Acetaminophen 650 mg 08/06/24 18:36 Acetaminophen 325 Mg Tablet PO Q6H PRN Mild Pain (1-3) or Fever Albuterol/Ipratropium 3 ml 08/06/24 20:00 08/07/24 07:26 Ipratropium 0.5 Mg/Albuterol Sulfate 2.5 Mg Ampul.Neb 3 Ml INHALATION 3 ml Q6HRT EDISON Administration Azithromycin 250 mg 08/07/24 09:00 08/07/24 09:40 Azithromycin 250 Mg Tablet PO 250 mg DAILY EDISON Administration Enoxaparin Sodium 30 mg 08/07/24 09:00 08/07/24 09:39 Enoxaparin 30 Mg/0.3 Ml Syringe SUB-Q 30 mg DAILY EDISON Administration Furosemide 20 mg 08/07/24 09:00 08/07/24 09:39 Furosemide 20 Mg Tablet PO 20 mg DAILY EDISON Administration Guaifenesin 1,200 mg 08/06/24 21:00 08/07/24 09:39 Guaifenesin 12 Hr 600 Mg Tabcr PO 1,200 mg Q12HR EDISON Administration Ceftriaxone Sodium 1 gm in 50 mls @ 100 mls/hr 08/07/24 12:00 08/07/24 12:33 Rocephin 1 Gm/Ns 50 Ml IVPB 100 mls/hr Q24H EDISON Administration Losartan Potassium 25 mg 08/07/24 09:00 08/07/24 09:39 Losartan Potassium 25 Mg Tablet PO 25 mg DAILY EDISON Administration Methylprednisolone Sodium Succinate 60 mg 08/06/24 18:00 08/07/24 12:34 Methylprednisolone Sod Succ 125 Mg Vial IV PUSH 60 mg Q6HR EDISON Administration Metoprolol Tartrate 50 mg 08/07/24 09:00 08/07/24 09:40 Metoprolol Tartrate 50 Mg Tab PO 50 mg DAILY EDISON Administration Oseltamivir Phosphate 30 mg 08/06/24 18:00 08/06/24 19:03 Oseltamivir Phosphate 30 Mg Capsule PO 08/11/24 17:59 30 mg DAILY@1800 EDISON Administration Radiology Results: ITS Impressions Chest X-Ray 08/06/24 13:38 IMPRESSION: 1. Mild opacities in the bilateral lower lung zones which could represent mild pulmonary edema, atelectasis or pneumonia. 2. Postoperative changes in the right infrahilar region with blunting at the posterior sulcus which could represent either postoperative atelectasis/scarring versus a small right pleural effusion. 2. Borderline heart size. Labs Labs: Laboratory Results - last 24 hr 08/06/24 08/06/24 08/07/24 13:21 16:50 06:26 WBC 5.0 RBC 3.88 L Hgb 10.1 L Hct 32.7 L MCV 84.3 MCH 26.0 MCHC 30.9 L RDW 14.4 Plt Count 204 MPV 10.2 Immature Gran % (Auto) 0.8 H Neut % (Auto) 87.8 H Lymph % (Auto) 10.6 L [place] % (Auto) 0.8 L Eos % (Auto) 0.0 Baso % (Auto) 0.0 L Lymph # (Auto) 0.53 L [place] # (Auto) 0.0 L Eos # (Auto) 0.0 Baso # (Auto) 0.0 Abs Immat Gran (auto) 0.04 H Absolute Neuts (auto) 4.4 Absolute Nucleated RBC 0.000 Nucleated RBC % 0.0 Puncture Site Right radial ABG pH 7.452 H ABG pCO2 32.5 L ABG pO2 73.2 L ABG PO2/FiO2 Ratio 1.83 ABG HCO3 22.2 ABG O2 Saturation 95.5 ABG O2 Content 15.7 L ABG Base Excess -1.1 A-a Gradient 174.6 Oxyhemoglobin 94.6 Total Hemoglobin 11.8 L O2 Delivery Device Nasal cannula O2 Liters/Min 5.0 FiO2 40 Sodium 136 L Potassium 4.5 Chloride 103 Carbon Dioxide 24 Anion Gap 9 BUN 43 H Creatinine 1.52 H Estim Creat Clear Calc 20 Estimated GFR 33 L Glucose 306 H POC Capillary Glucose Calcium 9.8 Magnesium 1.7 Urine Color Yellow Urine Appearance Clear Urine pH 5.0 Ur Specific [place] 1.016 Urine Protein 2+ H Urine Glucose (UA) Negative Urine Ketones Negative Ur Blood (Man) Negative Urine Nitrate Negative Urine Bilirubin Negative Urine Urobilinogen 0.2 Leukocyte Esterase Rfl 2+ H Urine RBC 0-2 Urine WBC 21-50 H Ur Squamous Epith Cells None seen Urine Bacteria None seen Urine Casts 3-5 Nasal MRSA (PCR) 08/07/24 08/07/24 09:20 12:37 WBC RBC Hgb Hct MCV MCH MCHC RDW Plt Count MPV Immature Gran % (Auto) Neut % (Auto) Lymph % (Auto) [place] % (Auto) Eos % (Auto) Baso % (Auto) Lymph # (Auto) [place] # (Auto) Eos # (Auto) Baso # (Auto) Abs Immat Gran (auto) Absolute Neuts (auto) Absolute Nucleated RBC Nucleated RBC % Puncture Site ABG pH ABG pCO2 ABG pO2 ABG PO2/FiO2 Ratio ABG HCO3 ABG O2 Saturation ABG O2 Content ABG Base Excess A-a Gradient Oxyhemoglobin Total Hemoglobin O2 Delivery Device O2 Liters/Min FiO2 Sodium Potassium Chloride Carbon Dioxide Anion Gap BUN Creatinine Estim Creat Clear Calc Estimated GFR Glucose POC Capillary Glucose 247 H Calcium Magnesium Urine Color Urine Appearance Urine pH Ur Specific [place] Urine Protein Urine Glucose (UA) Urine Ketones Ur Blood (Man) Urine Nitrate Urine Bilirubin Urine Urobilinogen Leukocyte Esterase Rfl Urine RBC Urine WBC Ur Squamous Epith Cells Urine Bacteria Urine Casts Nasal MRSA (PCR) Not detected Quality VTE Prophylaxis VTE prophylaxis: pharmacologic ordered Hospitalist MIPS Advance Care Plan I have confirmed that the patient's Advanced Care Plan is present, code status is documented, or surrogate decision maker is listed in patient medical record.: Yes Medication Reconciliation I have utilized all available resources to obtain, update and review the patients current medications (includes all prescriptions, OTC, herbals, cannabis, and nutritional supplements).: Yes
[2024-08-07 15:49] LABS: Hemoglobin A1C 6.9 % (<5.7)
[2024-08-07] MEDS: OSELTAMIVIR PHOSPHATE 30 MG CAPSULE PO (17:41)
[2024-08-07 17:54] LABS: Glucose Point of Care 256 mg/dl (65-105)
[2024-08-07] MEDS: INSULIN ASPART (*BKC) 100 UNITS/ML SUB-Q (17:57)
[2024-08-07 23:40] LABS: Glucose Point of Care 323 mg/dl (65-105)
[2024-08-08] VITALS (15 sets, daily range): BP systolic 156–158; BP diastolic 44–71; PULSE 76–105; RESP 16–22; TEMP 36.2–36.8; O2SAT 93–98
[2024-08-08] MEDS: methylPREDNISolone SOD SUCC 125 MG VIAL 60 MG IV PUSH ×2 (00:12→05:41)
[2024-08-08] MEDS: INSULIN HUMAN REGULAR (*BKC) 100 UNITS/ML 6 UNITS SUB-Q (00:13)
[2024-08-08] MEDS: IPRATROPIUM 0.5 MG/ALBUTEROL SULFATE 2.5 MG AMPUL.NEB 3 ML INHALATION ×4 (02:08→21:37)
--- NOTE | 2024-08-08 02:13 | PC.NURSE ---
Dr. Alvarado, notified blood glucose reading 323. Orders given to administer Regular insulin 6 units one time dose. Pt does not show any signs nor symptoms of hyperglycemia. Pt vital signs are stable. Will continue to monitor BG levels.
[2024-08-08 06:31] LABS: Hematocrit 32.6 % (37.0-47.0); Hemoglobin 10.3 g/dL (12.0-15.0); Mean Corpuscular HGB Conc 31.6 g/dl (32-36); Mean Corpuscular Volume 85.3 fl (80-100); Mean Platelet Volume 10.1 fl (7.4-10.4); Platelet Count Result 248 k/mm3 (150-375); Red Blood Count 3.82 M/mm3 (4.2-5.4); Red Cell Distribution Width 14.6 % (11.5-14.5); White Blood Count 24.1 K/mm3 (4.5-10.0)
[2024-08-08 06:40] LABS: Alanine Aminotransferase 15 U/L (6-35); Albumin Level 3.5 g/dL (3.5-5.1); Alkaline Phosphatase 86 U/L (38-126); Anion Gap 13 mmol/L (4-12); Aspartate Amino Transferase 35 U/L (14-36); Bilirubin,Total 0.5 mg/dL (0.2-1.3); Blood Urea Nitrogen 52 mg/dL (7-17); Carbon Dioxide 20 mmol/L (22-30); Chloride 102 mmol/L (98-107); Estimated CRCL calculation 19 ml/min; Estimated Glomerular Filt Rate 29; Glucose 267 mg/dL (65-110); Potassium 4.3 mmol/L (3.4-5.0); Sodium 135 mmol/L (137-145)
[2024-08-08 07:47] LABS: Glucose Point of Care 264 mg/dl (65-105)
[2024-08-08] MEDS: guaiFENesin 12 HR 600 MG TABCR 1200 MG PO ×2 (09:03→21:02)
[2024-08-08] MEDS: FUROSEMIDE 20 MG TABLET PO (09:03)
[2024-08-08] MEDS: LOSARTAN POTASSIUM 25 MG TABLET PO (09:03)
[2024-08-08] MEDS: AZITHROMYCIN 250 MG TABLET PO (09:04)
[2024-08-08] MEDS: ENOXAPARIN 30 MG/0.3 ML SYRINGE SUB-Q (09:04)
[2024-08-08] MEDS: METOPROLOL TARTRATE 50 MG TAB PO (09:04)
[2024-08-08] MEDS: INSULIN ASPART (*BKC) 100 UNITS/ML SUB-Q ×4 (09:05→22:57)
[2024-08-08 11:40] LABS: Glucose Point of Care 281 mg/dl (65-105)
[2024-08-08] MEDS: SODIUM CHLORIDE 0.9% IV 1,000 ML 75 ML IV CONT (12:00)
[2024-08-08 14:27] LABS: Hematocrit 32.5 % (37.0-47.0); Hemoglobin 10.3 g/dL (12.0-15.0); Mean Corpuscular HGB Conc 31.7 g/dl (32-36); Mean Corpuscular Hemoglobin 26.9 pg (26-34); Mean Corpuscular Volume 84.9 fl (80-100); Mean Platelet Volume 10.3 fl (7.4-10.4); Platelet Count Result 294 k/mm3 (150-375); Red Blood Count 3.83 M/mm3 (4.2-5.4); Red Cell Distribution Width 14.8 % (11.5-14.5); White Blood Count 31.7 K/mm3 (4.5-10.0)
[2024-08-08 16:27] LABS: Glucose Point of Care 213 mg/dl (65-105)
[2024-08-08] MEDS: BENZOCAINE/MENTHOL (*BKC) 18 EA LOZENGE 1 LOZENGE PO (17:17)
[2024-08-08] MEDS: OSELTAMIVIR PHOSPHATE 30 MG CAPSULE PO (17:17)
--- NOTE | 2024-08-08 17:55 | P.PNIM_ITS ---
Progress Note: A&P Assessment and Plan (1) Influenza A: Code(s): J10.1 - Influenza due to other identified influenza virus with other respiratory manifestations Status: Acute (2) COPD exacerbation: Code(s): J44.1 - Chronic obstructive pulmonary disease with (acute) exacerbation Status: Acute (3) Chronic respiratory failure with hypoxia, on home oxygen therapy: Code(s): J96.11 - Chronic respiratory failure with hypoxia; Z99.81 - Dependence on supplemental oxygen Status: Acute (4) Pyuria: Code(s): R82.81 - Pyuria Status: Acute (5) Chronic kidney disease, stage 3: Code(s): N18.30 - Chronic kidney disease, stage 3 unspecified Status: Acute Plan The patient presented to the emergency department with complaints of shortness of breath and weakness as detailed in HPI. Labs, imaging, EKG, and all reports were personally reviewed. Clinically she has a COPD exacerbation, precipitated b y influenza A. She has been started on scheduled bronchodilators and methylprednisolone. She is at her baseline oxygen requirements. Urine was positive for 2+ leukocyte esterase and 21 to 50 WBC and she reports having continued symptoms despite completing a course of antibiotics a couple of weeks ago. Continue ceftriaxone, pending urine culture. She reports a history of chronic kidney disease but she has never been here before and her baseline creatinine is unknown. Vital signs were reviewed and they are stable. UTI UA reviewed Urine culture pending Continue ceftriaxone Influenza Tamiflu for 5 days Nasal cannula 2 L Immunocompromise due to lung cancer Continue ceftriaxone and azithromycin DuoNeb q.6 hours DC Methylprednisone 60 mg IV push q.6 hours Continue prednisone 60 mg p.o. q.d. for 3 days and prednisone taper Subjective Date/time seen: 08/08/24 17:55 Interval history: Patient is currently doing well. No acute events. Still requiring oxygen. Review of Systems Review of Systems: 12 systems were reviewed and are negativ e except for as per HPI. Exam 2 Narrative: General: Mildly ill-appearing elderly female lying on her left side in bed in no acute distress. Weight: 61.8 kg. BMI: 24.1. HEENT: PERRL, EOMI. Sclera anicteric. Tacky mucous membranes. Neck: Supple. Respiratory: Respirations are nonlabored and she is speaking full sentences. Lung sounds are coarse with expiratory wheezing. Cardiovascular: Regular rate and rhythm with S1-S2. Gastrointestinal: Abdomen is soft, nontender, and nondistended with positive bowel sounds. Skin: Warm and dry. No rash or lesions on limited exam. Extremities: No cyanosis, clubbing, or significant edema. Radial and pedal pulses intact. Neurological: Alert. Cranial nerves 2-12 are grossly intact. No gross focal deficits to casual conversation. Psychiatric: Pleasant and cooperative with normal mood and affect. Objective Data Vital Signs Vital Signs: Vital Signs - 24 hr 08/07/24 20:18 08/07/24 20:18 08/07/24 21:02 Temperature Pulse Rate 69 Respiratory Rate 20 Blood Pressure Pulse Oximetry 93 98 Oxygen Delivery Nasal Cannula Nasal Cannula Oxygen Flow Rate 4 3 Fraction of Inspired Oxygen 08/07/24 21:43 08/08/24 02:08 08/08/24 02:20 Temperature 98.8 F Pulse Rate 83 105 H 89 Respiratory Rate 20 20 20 Blood Pressure 149/45 H Pulse Oximetry 98 Oxygen Delivery Oxygen Flow Rate Fraction of Inspired Oxygen 08/08/24 05:57 08/08/24 07:45 08/08/24 07:45 Temperature 97.1 F L Pulse Rate 88 89 Respiratory Rate 16 20 Blood Pressure 158/44 H Pulse Oximetry 96 93 Oxygen Delivery Nasal Cannula Oxygen Flow Rate 3 Fraction of Inspired Oxygen 32 08/08/24 07:56 08/08/24 09:04 08/08/24 09:05 Temperature Pulse Rate 95 95 Respiratory Rate 20 Blood Pressure Pulse Oximetry 93 Oxygen Delivery Nasal Cannula Oxygen Flow Rate 3 Fraction of Inspired Oxygen 08/08/24 13:26 08/08/24 13:26 08/08/24 13:39 Temperature Pulse Rate 78 81 Respiratory Rate 20 20 Blood Pressure Pulse Oximetry 94 Oxygen Delivery Nasal Cannula Oxygen Flow Rate 3 Fraction of Inspired Oxygen 32 08/08/24 14:00 Temperature 97.2 F L Pulse Rate 76 Respiratory Rate 20 Blood Pressure 156/56 H Pulse Oximetry 98 Oxygen Delivery Oxygen Flow Rate Fraction of Inspired Oxygen Intake/Output Intake/Output: Intake & Output 08/05/24 08/06/24 08/07/24 08/08/24 23:59 23:59 23:59 23:59 Intake Total 50 1320 930 Balance 50 1320 930 Meds/Results Medications: Active Medications Generic Name Dose Route Start Last Admin Trade Name Freq PRN Reason Stop Dose Admin Acetaminophen 650 mg 08/06/24 18:36 Acetaminophen 325 Mg Tablet PO Q6H PRN Mild Pain (1-3) or Fever Albuterol/Ipratropium 3 ml 08/06/24 20:00 08/08/24 13:26 Ipratropium 0.5 Mg/Albuterol Sulfate 2.5 Mg Ampul.Neb 3 Ml INHALATION 3 ml Q6HRT EDISON Administration Azithromycin 250 mg 08/07/24 09:00 08/08/24 09:04 Azithromycin 250 Mg Tablet PO 250 mg DAILY EDISON Administration Benzocaine 1 lozenge 08/08/24 14:52 08/08/24 17:17 Benzocaine/Menthol (*Bk) 18 Ea Lozenge PO 1 lozenge PRN PRN Administration Sore Throat Dextrose 12.5 gm 08/07/24 14:30 Dextrose 50% 25 Gm/50 Ml Syringe IV PUSH PRN PRN Hypoglycemia Protocol Enoxaparin Sodium 30 mg 08/07/24 09:00 08/08/24 09:04 Enoxaparin 30 Mg/0.3 Ml Syringe SUB-Q 30 mg DAILY EDISON Administration Furosemide 20 mg 08/07/24 09:00 08/08/24 09:03 Furosemide 20 Mg Tablet PO 20 mg DAILY EDISON Administration Glucose 15 gm 08/07/24 14:30 Glucose Oral Gel 15 Gm Of Glucse In 37.5 Gm Tube PO PRN PRN Hypoglycemia Protocol Guaifenesin 1,200 mg 08/06/24 21:00 08/08/24 09:03 Guaifenesin 12 Hr 600 Mg Tabcr PO 1,200 mg Q12HR EDISON Administration Ceftriaxone Sodium 1 gm in 50 mls @ 100 mls/hr 08/07/24 12:00 08/08/24 12:01 Rocephin 1 Gm/Ns 50 Ml IVPB 100 mls/hr Q24H EDISON Administration Dextrose 1,000 mls @ 100 mls/hr 08/07/24 14:30 Dextrose 5% 1,000 Ml IVPB PRN PRN Hypoglycemia Protocol Sodium Chloride 1,000 mls @ 75 mls/hr 08/08/24 11:05 08/08/24 12:00 Normal Saline Iv IV CONT 75 mls/hr .[id number] EDISON Administration Insulin Aspart 3 - 6 units 08/07/24 17:00 08/08/24 17:17 Insulin Aspart (*Bkc) 100 Units/Ml SUB-Q 3 units TIDWM COUNTS INCLUDE 234 BEDS AT THE [facility] Administration Protocol Losartan Potassium 25 mg 08/07/24 09:00 08/08/24 09:03 Losartan Potassium 25 Mg Tablet PO 25 mg DAILY EDISON Administration Metoprolol Tartrate 50 mg 08/07/24 09:00 08/08/24 09:04 Metoprolol Tartrate 50 Mg Tab PO 50 mg DAILY EDISON Administration Oseltamivir Phosphate 30 mg 08/06/24 18:00 08/08/24 17:17 Oseltamivir Phosphate 30 Mg Capsule PO 08/11/24 17:59 30 mg DAILY@1800 COUNTS INCLUDE 234 BEDS AT THE [facility] Administration Prednisone 60 mg 08/09/24 08:00 Prednisone 20 Mg Tablet PO 08/11/24 08:01 DAILY@0800 COUNTS INCLUDE 234 BEDS AT THE [facility] Radiology Results: ITS Impressions Chest X-Ray 08/06/24 13:38 IMPRESSION: 1. Mild opacities in the bilateral lower lung zones which could represent mild pulmonary edema, atelectasis or pneumonia. 2. Postoperative changes in the right infrahilar region with blunting at the posterior sulcus which could represent either postoperative atelectasis/scarring versus a small right pleural effusion. 2. Borderline heart size. Labs Labs: Laboratory Results - last 24 hr 08/07/24 08/08/24 08/08/24 23:36 06:12 07:30 WBC 24.1 H RBC 3.82 L Hgb 10.3 L Hct 32.6 L MCV 85.3 MCH 27.0 MCHC 31.6 L RDW 14.6 H Plt Count 248 MPV 10.1 Sodium 135 L Potassium 4.3 Chloride 102 Carbon Dioxide 20 L Anion Gap 13 H BUN 52 H Creatinine 1.66 H Estim Creat Clear Calc 19 Estimated GFR 29 L Glucose 267 H POC Capillary Glucose 323 H 264 H Calcium 10.0 Total Bilirubin 0.5 AST 35 ALT 15 Alkaline Phosphatase 86 Total Protein 7.0 Albumin 3.5 08/08/24 08/08/24 08/08/24 11:26 14:22 16:15 WBC 31.7 H RBC 3.83 L Hgb 10.3 L Hct 32.5 L MCV 84.9 MCH 26.9 MCHC 31.7 L RDW 14.8 H Plt Count 294 MPV 10.3 Sodium Potassium Chloride Carbon Dioxide Anion Gap BUN Creatinine Estim Creat Clear Calc Estimated GFR Glucose POC Capillary Glucose 281 H 213 H Calcium Total Bilirubin AST ALT Alkaline Phosphatase Total Protein Albumin Hospitalist MIPS Advance Care Plan I have confirmed that the patient's Advanced Care Plan is present, code status is documented, or surrogate decision maker is listed in patient medical record.: Yes Medication Reconciliation I have utilized all available resources to obtain, update and review the patients current medications (includes all prescriptions, OTC, herbals, cannabis, and nutritional supplements).: Yes
[2024-08-08 20:47] LABS: Glucose Point of Care 282 mg/dl (65-105)
[2024-08-09] VITALS (9 sets, daily range): BP systolic 133–153; BP diastolic 43–62; PULSE 58–90; RESP 18–22; TEMP 36–36.9; O2SAT 93–97
[2024-08-09] MEDS: SODIUM CHLORIDE 0.9% IV 1,000 ML 75 ML IV CONT (01:30)
[2024-08-09 07:41] LABS: Glucose Point of Care 156 mg/dl (65-105)
[2024-08-09 08:01] LABS: Mean Corpuscular HGB Conc 31.3 g/dl (32-36); Mean Corpuscular Hemoglobin 26.6 pg (26-34); Mean Corpuscular Volume 85.1 fl (80-100); Mean Platelet Volume 10.4 fl (7.4-10.4); Platelet Count Result 280 k/mm3 (150-375); Red Blood Count 3.76 M/mm3 (4.2-5.4); Red Cell Distribution Width 14.7 % (11.5-14.5); White Blood Count 22.9 K/mm3 (4.5-10.0)
[2024-08-09] MEDS: LOSARTAN POTASSIUM 25 MG TABLET PO (08:09)
[2024-08-09] MEDS: FUROSEMIDE 20 MG TABLET PO (08:09)
[2024-08-09] MEDS: predniSONE 20 MG TABLET 60 MG PO (08:09)
[2024-08-09] MEDS: METOPROLOL TARTRATE 50 MG TAB PO (08:09)
[2024-08-09] MEDS: ENOXAPARIN 30 MG/0.3 ML SYRINGE SUB-Q (08:09)
[2024-08-09] MEDS: AZITHROMYCIN 250 MG TABLET PO (08:09)
[2024-08-09] MEDS: guaiFENesin 12 HR 600 MG TABCR 1200 MG PO ×2 (08:09→21:12)
[2024-08-09 08:13] LABS: Alanine Aminotransferase 14 U/L (6-35); Albumin Level 3.1 g/dL (3.5-5.1); Alkaline Phosphatase 76 U/L (38-126); Anion Gap 6 mmol/L (4-12); Aspartate Amino Transferase 26 U/L (14-36); Bilirubin,Total 0.4 mg/dL (0.2-1.3); Blood Urea Nitrogen 49 mg/dL (7-17); Calcium 9.8 mg/dL (8.4-10.2); Carbon Dioxide 25 mmol/L (22-30); Chloride 106 mmol/L (98-107); Estimated CRCL calculation 23 ml/min; Estimated Glomerular Filt Rate 37; Glucose 158 mg/dL (65-110); Potassium 4.7 mmol/L (3.4-5.0); Sodium 137 mmol/L (137-145)
[2024-08-09] MEDS: IPRATROPIUM 0.5 MG/ALBUTEROL SULFATE 2.5 MG AMPUL.NEB 3 ML INHALATION ×2 (09:39→13:37)
[2024-08-09 11:43] LABS: Glucose Point of Care 266 mg/dl (65-105)
[2024-08-09] MEDS: INSULIN ASPART (*BKC) 100 UNITS/ML SUB-Q ×3 (12:11→21:12)
[2024-08-09] MEDS: polyethylene glycoL 3350 17 GM POWD.PACK PO (12:13)
--- NOTE | 2024-08-09 13:32 | PM.IMPN ---
Progress Note: A&P Assessment and Plan (1) Influenza A: Code(s): J10.1 - Influenza due to other identified influenza virus with other respiratory manifestations Status: Acute (2) COPD exacerbation: Code(s): J44.1 - Chronic obstructive pulmonary disease with (acute) exacerbation Status: Acute (3) Chronic respiratory failure with hypoxia, on home oxygen therapy: Code(s): J96.11 - Chronic respiratory failure with hypoxia; Z99.81 - Dependence on supplemental oxygen Status: Acute (4) Pyuria: Code(s): R82.81 - Pyuria Status: Acute (5) Chronic kidney disease, stage 3: Code(s): N18.30 - Chronic kidney disease, stage 3 unspecified Status: Acute Plan The patient presented to the emergency department with complaints of shortness of breath and weakness as detailed in HPI. Labs, imaging, EKG, and all reports were personally reviewed. Clinically she has a COPD exacerbation, precipitated by influenza A. She has been started on scheduled bronchodilators and methylprednisolone. She is at her baseline oxygen requirements. Urine was positive for 2+ leukocyte esterase and 21 to 50 WBC and she reports having continued symptoms despite completing a course of antibiotics a couple of weeks ago. Continue ceftriaxone, pending urine culture. She reports a history of chronic kidney disease but she has never been here before and her baseline creatinine is unknown. Vital signs were reviewed and they are stable. UTI UA reviewed Urine culture negative Discontinued ceftriaxone Started amoxicillin clavulanic acid Influenza Tamiflu for 5 days Nasal cannula 2 L Immunocompromise due to lung cancer Continue ceftriaxone and azithromycin DuoNeb q.6 hours DC Methylprednisone 60 mg IV push q.6 hours Continue prednisone 60 mg p.o. q.d. for 3 days and prednisone taper Subjective Date/time seen: 08/09/24 13:32 Interval history: patient complains of constipation. Patient reports that she has this issue of diarrhea and constipation. Advised her not to take Imodium unless if it is necessary because of the possibility of overflow diarrhea. The abdominal x-ray shows Fecal stasis within the colon with extensive gaseous distention of the stomach. started her on MiraLax even and if necessary will order lactulose 1 time dose. Notable patient was a previous smoker. She was using 2 to 3 L at home Review of Systems Review of Systems: 12 systems were reviewed and are negative except for as per HPI. Exam Narrative: General: Mildly ill-appearing elderly female lying on her left side in bed in no acute distress. Weight: 61.8 kg. BMI: 24.1. HEENT: PERRL, EOMI. Sclera anicteric. Tacky mucous membranes. Neck: Supple. Respiratory: Respirations are nonlabored and she is speaking full sentences. Lung sounds are coarse with expiratory wheezing. Cardiovascular: Regular rate and rhythm with S1-S2. Gastrointestinal: Abdomen is soft, nontender, and nondistended with positive bowel sounds. Skin: Warm and dry. No rash or lesions on limited exam. Extremities: No cyanosis, clubbing, or significant edema. Radial and pedal pulses intact. Neurological: Alert. Cranial nerves 2-12 are grossly intact. No gross focal deficits to casual conversation. Psychiatric: Pleasant and cooperative with normal mood and affect. Objective Data Vital Signs Vital Signs: Vital Signs - 24 hr 08/08/24 13:39 08/08/24 14:00 08/08/24 21:00 Temperature 97.2 F L 98.2 F Pulse Rate 81 76 84 Respiratory Rate 20 20 22 H Blood Pressure 156/56 H 157/71 H Pulse Oximetry 98 94 Oxygen Delivery Oxygen Flow Rate 08/08/24 21:02 08/08/24 21:37 08/08/24 21:46 Temperature Pulse Rate 77 78 Respiratory Rate 20 20 Blood Pressure Pulse Oximetry 95 Oxygen Delivery Nasal Cannula Oxygen Flow Rate 3 08/08/24 22:05 08/09/24 05:02 08/09/24 08:09 Temperature 98.1 F Pulse Rate 90 75 Respiratory Rate 22 H Blood Pressure 152/60 H Pulse Oximetry 95 97 Oxygen Delivery Nasal Cannula Oxygen Flow Rate 3 08/09/24 09:06 08/09/24 09:40 08/09/24 09:40 Temperature Pulse Rate 68 Respiratory Rate 20 Blood Pressure Pulse Oximetry 96 Oxygen Delivery Nasal Cannula Nasal Cannula Oxygen Flow Rate 3 3 08/09/24 09:55 Temperature Pulse Rate 69 Respiratory Rate 20 Blood Pressure Pulse Oximetry Oxygen Delivery Oxygen Flow Rate Intake/Output Intake/Output: Intake & Output 08/06/24 08/07/24 08/08/24 08/09/24 23:59 23:59 23:59 23:59 Intake Total 50 1320 1620 2080 Balance 50 1320 1620 2080 Meds/Results Medications: Active Medications Generic Name Dose Route Start Last Admin Trade Name Freq PRN Reason Stop Dose Admin Acetaminophen 650 mg 08/06/24 18:36 Acetaminophen 325 Mg Tablet PO Q6H PRN Mild Pain (1-3) or Fever Albuterol/Ipratropium 3 ml 08/06/24 20:00 08/09/24 09:39 Ipratropium 0.5 Mg/Albuterol Sulfate 2.5 Mg Ampul.Neb 3 Ml INHALATION 3 ml Q6HRT EDISON Administration Azithromycin 250 mg 08/07/24 09:00 08/09/24 08:09 Azithromycin 250 Mg Tablet PO 250 mg DAILY EDISON Administration Benzocaine 1 lozenge 08/08/24 14:52 08/08/24 17:17 Benzocaine/Menthol (*Bkc) 18 Ea Lozenge PO 1 lozenge PRN PRN Administration Sore Throat Dextrose 12.5 gm 08/07/24 14:30 Dextrose 50% 25 Gm/50 Ml Syringe IV PUSH PRN PRN Hypoglycemia Protocol Enoxaparin Sodium 30 mg 08/07/24 09:00 08/09/24 08:09 Enoxaparin 30 Mg/0.3 Ml Syringe SUB-Q 30 mg DAILY EDISON Administration Furosemide 20 mg 08/07/24 09:00 08/09/24 08:09 Furosemide 20 Mg Tablet PO 20 mg DAILY EDISON Administration Glucose 15 gm 08/07/24 14:30 Glucose Oral Gel 15 Gm Of Glucse In 37.5 Gm Tube PO PRN PRN Hypoglycemia Protocol Guaifenesin 1,200 mg 08/06/24 21:00 08/09/24 08:09 Guaifenesin 12 Hr 600 Mg Tabcr PO 1,200 mg Q12HR EDISON Administration Ceftriaxone Sodium 1 gm in 50 mls @ 100 mls/hr 08/07/24 12:00 08/09/24 13:00 Rocephin 1 Gm/Ns 50 Ml IVPB Infused Q24H EDISON Infusion Dextrose 1,000 mls @ 100 mls/hr 08/07/24 14:30 Dextrose 5% 1,000 Ml IVPB PRN PRN Hypoglycemia Protocol Insulin Aspart 3 - 6 units 08/07/24 17:00 08/09/24 12:11 Insulin Aspart (*Bkc) 100 Units/Ml SUB-Q 4 units TIDWM EDISON Administration Protocol Insulin Aspart 1 - 2 units 08/09/24 21:00 Insulin Aspart (*Bkc) 100 Units/Ml SUB-Q HS [facility] Protocol Losartan Potassium 25 mg 08/07/24 09:00 08/09/24 08:09 Losartan Potassium 25 Mg Tablet PO 25 mg DAILY EDISON Administration Metoprolol Tartrate 50 mg 08/07/24 09:00 08/09/24 08:09 Metoprolol Tartrate 50 Mg Tab PO 50 mg DAILY EDISON Administration Oseltamivir Phosphate 30 mg 08/06/24 18:00 08/08/24 17:17 Oseltamivir Phosphate 30 Mg Capsule PO 08/11/24 17:59 30 mg DAILY@1800 EDISON Administration Polyethylene Glycol 17 gm 08/09/24 10:53 08/09/24 12:13 Polyethylene Glycol 3350 17 Gm Powd.Pack PO 17 gm QAM EDISON Administration Prednisone 60 mg 08/09/24 08:00 08/09/24 08:09 Prednisone 20 Mg Tablet PO 08/11/24 08:01 60 mg DAILY@0800 EDISON Administration Radiology Results: ITS Impressions Chest X-Ray 08/06/24 13:38 IMPRESSION: 1. Mild opacities in the bilateral lower lung zones which could represent mild pulmonary edema, atelectasis or pneumonia. 2. Postoperative changes in the right infrahilar region with blunting at the posterior sulcus which could represent either postoperative atelectasis/scarring versus a small right pleural effusion. 2. Borderline heart size. Abdomen X-Ray 08/09/24 13:14 IMPRESSION: Fecal stasis within the colon with extensive gaseous distention of the stomach. Labs Labs: Laboratory Results - last 24 hr 08/08/24 08/08/24 08/08/24 14:22 16:15 20:39 WBC 31.7 H RBC 3.83 L Hgb 10.3 L Hct 32.5 L MCV 84.9 MCH 26.9 MCHC 31.7 L RDW 14.8 H Plt Count 294 MPV 10.3 Sodium Potassium Chloride Carbon Dioxide Anion Gap BUN Creatinine Estim Creat Clear Calc Estimated GFR Glucose POC Capillary Glucose 213 H 282 H Calcium Total Bilirubin AST ALT Alkaline Phosphatase Total Protein Albumin 08/09/24 08/09/24 08/09/24 06:48 07:29 11:38 WBC 22.9 H RBC 3.76 L Hgb 10.0 L Hct 32.0 L MCV 85.1 MCH 26.6 MCHC 31.3 L RDW 14.7 H Plt Count 280 MPV 10.4 Sodium 137 Potassium 4.7 Chloride 106 Carbon Dioxide 25 Anion Gap 6 BUN 49 H Creatinine 1.35 H Estim Creat Clear Calc 23 Estimated GFR 37 L Glucose 158 H POC Capillary Glucose 156 H 266 H Calcium 9.8 Total Bilirubin 0.4 AST 26 ALT 14 Alkaline Phosphatase 76 Total Protein 6.0 L Albumin 3.1 L Hospitalist MIPS Advance Care Plan I have confirmed that the patient's Advanced Care Plan is present, code status is documented, or surrogate decision maker is listed in patient medical record.: Yes Medication Reconciliation I have utilized all available resources to obtain, update and review the patients current medications (includes all prescriptions, OTC, herbals, cannabis, and nutritional supplements).: Yes
[2024-08-09 17:11] LABS: Glucose Point of Care 319 mg/dl (65-105)
[2024-08-09] MEDS: LACTULOSE 20 GM/30 ML UDC 30 GM PO (17:38)
[2024-08-09] MEDS: OSELTAMIVIR PHOSPHATE 30 MG CAPSULE PO (17:38)
[2024-08-09] MEDS: AMOXICILLIN/CLAVULANATE K 500-125 MG TAB 1 TABLET PO (21:12)
[2024-08-09 21:47] LABS: Glucose Point of Care 268 mg/dl (65-105)
[2024-08-10] VITALS (15 sets, daily range): BP systolic 135–150; BP diastolic 53–62; PULSE 65–82; RESP 18–20; TEMP 36.6–37.1; O2SAT 95–100
[2024-08-10] MEDS: IPRATROPIUM 0.5 MG/ALBUTEROL SULFATE 2.5 MG AMPUL.NEB 3 ML INHALATION ×4 (02:19→20:48)
[2024-08-10 06:53] LABS: Hematocrit 32.9 % (37.0-47.0); Hemoglobin 10.4 g/dL (12.0-15.0); Mean Corpuscular HGB Conc 31.6 g/dl (32-36); Mean Corpuscular Hemoglobin 27.1 pg (26-34); Mean Corpuscular Volume 85.7 fl (80-100); Mean Platelet Volume 10.3 fl (7.4-10.4); Platelet Count Result 269 k/mm3 (150-375); Red Blood Count 3.84 M/mm3 (4.2-5.4); Red Cell Distribution Width 14.6 % (11.5-14.5); White Blood Count 17.3 K/mm3 (4.5-10.0)
[2024-08-10 07:04] LABS: Alanine Aminotransferase 19 U/L (6-35); Alkaline Phosphatase 70 U/L (38-126); Anion Gap 7 mmol/L (4-12); Aspartate Amino Transferase 21 U/L (14-36); Bilirubin,Total 0.5 mg/dL (0.2-1.3); Blood Urea Nitrogen 44 mg/dL (7-17); Calcium 9.6 mg/dL (8.4-10.2); Carbon Dioxide 25 mmol/L (22-30); Chloride 106 mmol/L (98-107); Estimated CRCL calculation 22 ml/min; Estimated Glomerular Filt Rate 36; Glucose 133 mg/dL (65-110); Potassium 4.2 mmol/L (3.4-5.0); Sodium 138 mmol/L (137-145)
[2024-08-10 08:05] LABS: Glucose Point of Care 127 mg/dl (65-105)
[2024-08-10] MEDS: METOPROLOL TARTRATE 50 MG TAB PO (10:27)
[2024-08-10] MEDS: predniSONE 20 MG TABLET 60 MG PO (10:27)
[2024-08-10] MEDS: AMOXICILLIN/CLAVULANATE K 500-125 MG TAB 1 TABLET PO ×2 (10:27→21:15)
[2024-08-10] MEDS: FUROSEMIDE 20 MG TABLET PO (10:27)
[2024-08-10] MEDS: AZITHROMYCIN 250 MG TABLET PO (10:27)
[2024-08-10] MEDS: ENOXAPARIN 30 MG/0.3 ML SYRINGE SUB-Q (10:28)
[2024-08-10] MEDS: polyethylene glycoL 3350 17 GM POWD.PACK PO (10:28)
[2024-08-10] MEDS: LOSARTAN POTASSIUM 25 MG TABLET PO (10:28)
[2024-08-10] MEDS: guaiFENesin 12 HR 600 MG TABCR 1200 MG PO ×2 (10:28→21:14)
[2024-08-10 11:36] LABS: Glucose Point of Care 119 mg/dl (65-105)
[2024-08-10 16:47] LABS: Glucose Point of Care 253 mg/dl (65-105)
[2024-08-10] MEDS: INSULIN ASPART (*BKC) 100 UNITS/ML SUB-Q ×2 (17:29→21:15)
[2024-08-10] MEDS: OSELTAMIVIR PHOSPHATE 30 MG CAPSULE PO (17:32)
--- NOTE | 2024-08-10 17:58 | PM.IMPN ---
Progress Note: A&P Assessment and Plan (1) Influenza A: Code(s): J10.1 - Influenza due to other identified influenza virus with other respiratory manifestations Status: Acute (2) COPD exacerbation: Code(s): J44.1 - Chronic obstructive pulmonary disease with (acute) exacerbation Status: Acute (3) Chronic respiratory failure with hypoxia, on home oxygen therapy: Code(s): J96.11 - Chronic respiratory failure with hypoxia; Z99.81 - Dependence on supplemental oxygen Status: Acute (4) Pyuria: Code(s): R82.81 - Pyuria Status: Acute (5) Chronic kidney disease, stage 3: Code(s): N18.30 - Chronic kidney disease, stage 3 unspecified Status: Acute Plan The patient presented to the emergency department with complaints of shortness of breath and weakness as detailed in HPI. Labs, imaging, EKG, and all reports were personally reviewed. Clinically she has a COPD exacerbation, precipitated by influenza A. She has been started on scheduled bronchodilators and methylprednisolone. She is at her baseline oxygen requirements. Urine was positive for 2+ leukocyte esterase and 21 to 50 WBC and she reports having continued symptoms despite completing a course of antibiotics a couple of weeks ago. Continue ceftriaxone, pending urine culture. She reports a history of chronic kidney disease but she has never been here before and her baseline creatinine is unknown. Vital signs were reviewed and they are stable. UTI UA reviewed Urine culture negative Discontinued ceftriaxone Started amoxicillin clavulanic acid Influenza Tamiflu for 5 days Nasal cannula 2 L Immunocompromise due to lung cancer Continue ceftriaxone and azithromycin DuoNeb q.6 hours DC Methylprednisone 60 mg IV push q.6 hours Continue prednisone 60 mg p.o. q.d. for 3 days and prednisone taper Subjective Date/time seen: 08/10/24 17:58 Interval history: Patient had a bowel movement. Patient is feeling weak. Will monitor her WBC and discharge possibly tomorrow. Patient baseline wears 3 L nasal cannula at home. Review of Systems Review of Systems: 12 systems were reviewed and are negative except for as per HPI. Exam Narrative: General: Mildly ill-appearing elderly female lying on her left side in bed in no acute distress. Weight: 61.8 kg. BMI: 24.1. HEENT: PERRL, EOMI. Sclera anicteric. Tacky mucous membranes. Neck: Supple. Respiratory: Respirations are nonlabored and she is speaking full sentences. Lung sounds are coarse with expiratory wheezing. Cardiovascular: Regular rate and rhythm with S1-S2. Gastrointestinal: Abdomen is soft, nontender, and nondistended with positive bowel sounds. Skin: Warm and dry. No rash or lesions on limited exam. Extremities: No cyanosis, clubbing, or significant edema. Radial and pedal pulses intact. Neurological: Alert. Cranial nerves 2-12 are grossly intact. No gross focal deficits to casual conversation. Psychiatric: Pleasant and cooperative with normal mood and affect. Objective Data Vital Signs Vital Signs: Vital Signs - 24 hr 08/09/24 21:12 08/09/24 22:00 08/10/24 02:21 Temperature 98.4 F Pulse Rate 58 L 75 Respiratory Rate 20 18 Blood Pressure 153/62 H Pulse Oximetry 97 93 Oxygen Delivery Nasal Cannula Oxygen Flow Rate 0 08/10/24 02:30 08/10/24 06:00 08/10/24 08:00 Temperature 97.8 F Pulse Rate 72 65 Respiratory Rate 18 20 Blood Pressure 150/53 H Pulse Oximetry 100 97 Oxygen Delivery Nasal Cannula Oxygen Flow Rate 3 08/10/24 08:19 08/10/24 08:19 08/10/24 08:38 Temperature Pulse Rate 74 71 Respiratory Rate 20 20 Blood Pressure Pulse Oximetry 95 Oxygen Delivery Nasal Cannula Oxygen Flow Rate 3 08/10/24 10:27 08/10/24 14:00 08/10/24 14:23 Temperature 98.8 F Pulse Rate 71 69 76 Respiratory Rate 20 20 Blood Pressure 135/53 L Pulse Oximetry 97 Oxygen Delivery Oxygen Flow Rate 08/10/24 14:32 Temperature Pulse Rate 82 Respiratory Rate 20 Blood Pressure Pulse Oximetry Oxygen Delivery Oxygen Flow Rate Intake/Output Intake/Output: Intake & Output 08/07/24 08/08/24 08/09/24 08/10/24 23:59 23:59 23:59 23:59 Intake Total 1320 1620 3730 2200 Balance 1320 1620 3730 2200 Meds/Results Medications: Active Medications Generic Name Dose Route Start Last Admin Trade Name Freq PRN Reason Stop Dose Admin Acetaminophen 650 mg 08/06/24 18:36 Acetaminophen 325 Mg Tablet PO Q6H PRN Mild Pain (1-3) or Fever Albuterol/Ipratropium 3 ml 08/06/24 20:00 08/10/24 14:19 Ipratropium 0.5 Mg/Albuterol Sulfate 2.5 Mg Ampul.Neb 3 Ml INHALATION 3 ml Q6HRT EDISON Administration Amoxicillin/Clavulanate Potassium 1 tablet 08/09/24 21:00 08/10/24 10:27 Amoxicillin/Clavulanate K 500-125 Mg Tab PO 08/12/24 09:01 1 tablet Q12HR EDISON Administration Azithromycin 250 mg 08/07/24 09:00 08/10/24 10:27 Azithromycin 250 Mg Tablet PO 08/12/24 09:01 250 mg DAILY EDISON Administration Benzocaine 1 lozenge 08/08/24 14:52 08/08/24 17:17 Benzocaine/Menthol (*Bkc) 18 Ea Lozenge PO 1 lozenge PRN PRN Administration Sore Throat Dextrose 12.5 gm 08/07/24 14:30 Dextrose 50% 25 Gm/50 Ml Syringe IV PUSH PRN PRN Hypoglycemia Protocol Enoxaparin Sodium 30 mg 08/07/24 09:00 08/10/24 10:28 Enoxaparin 30 Mg/0.3 Ml Syringe SUB-Q 30 mg DAILY EDISON Administration Furosemide 20 mg 08/07/24 09:00 08/10/24 10:27 Furosemide 20 Mg Tablet PO 20 mg DAILY EDISON Administration Glucose 15 gm 08/07/24 14:30 Glucose Oral Gel 15 Gm Of Glucse In 37.5 Gm Tube PO PRN PRN Hypoglycemia Protocol Guaifenesin 1,200 mg 08/06/24 21:00 08/10/24 10:28 Guaifenesin 12 Hr 600 Mg Tabcr PO 1,200 mg Q12HR EDISON Administration Dextrose 1,000 mls @ 100 mls/hr 08/07/24 14:30 Dextrose 5% 1,000 Ml IVPB PRN PRN Hypoglycemia Protocol Insulin Aspart 3 - 6 units 08/07/24 17:00 08/10/24 17:29 Insulin Aspart (*Bkc) 100 Units/Ml SUB-Q 3 units TIDWM EDISON Administration Protocol Insulin Aspart 1 - 2 units 08/09/24 21:00 08/09/24 21:12 Insulin Aspart (*Bkc) 100 Units/Ml SUB-Q 1 units HS EDISON Administration Protocol Losartan Potassium 25 mg 08/07/24 09:00 08/10/24 10:28 Losartan Potassium 25 Mg Tablet PO 25 mg DAILY EDISON Administration Metoprolol Tartrate 50 mg 08/07/24 09:00 08/10/24 10:27 Metoprolol Tartrate 50 Mg Tab PO 50 mg DAILY EDISON Administration Oseltamivir Phosphate 30 mg 08/06/24 18:00 08/10/24 17:32 Oseltamivir Phosphate 30 Mg Capsule PO 08/11/24 17:59 30 mg DAILY@1800 [facility] Administration Polyethylene Glycol 17 gm 08/09/24 10:53 08/10/24 10:28 Polyethylene Glycol 3350 17 Gm Powd.Pack PO 17 gm QAM EDISON Administration Prednisone 60 mg 08/09/24 08:00 08/10/24 10:27 Prednisone 20 Mg Tablet PO 08/11/24 08:01 60 mg DAILY@0800 [facility] Administration Prednisone 40 mg 08/12/24 08:00 Prednisone 10 Mg Tablet PO 08/24/24 07:59 DAILY@0800 [facility] Taper Prednisone 5 mg 08/24/24 08:00 Prednisone 5 Mg Tablet PO 08/26/24 08:01 DAILY@0800 [facility] Radiology Results: ITS Impressions Chest X-Ray 08/06/24 13:38 IMPRESSION: 1. Mild opacities in the bilateral lower lung zones which could represent mild pulmonary edema, atelectasis or pneumonia. 2. Postoperative changes in the right infrahilar region with blunting at the posterior sulcus which could represent either postoperative atelectasis/scarring versus a small right pleural effusion. 2. Borderline heart size. Abdomen X-Ray 08/09/24 13:14 IMPRESSION: Fecal stasis within the colon with extensive gaseous distention of the stomach. Labs Labs: Laboratory Results - last 24 hr 08/09/24 08/10/24 08/10/24 20:33 06:25 07:59 WBC 17.3 H RBC 3.84 L Hgb 10.4 L Hct 32.9 L MCV 85.7 MCH 27.1 MCHC 31.6 L RDW 14.6 H Plt Count 269 MPV 10.3 Sodium 138 Potassium 4.2 Chloride 106 Carbon Dioxide 25 Anion Gap 7 BUN 44 H Creatinine 1.40 H Estim Creat Clear Calc 22 Estimated GFR 36 L Glucose 133 H POC Capillary Glucose 268 H 127 H Calcium 9.6 Total Bilirubin 0.5 AST 21 ALT 19 Alkaline Phosphatase 70 Total Protein 6.0 L Albumin 3.0 L 08/10/24 08/10/24 11:18 16:40 WBC RBC Hgb Hct MCV MCH MCHC RDW Plt Count MPV Sodium Potassium Chloride Carbon Dioxide Anion Gap BUN Creatinine Estim Creat Clear Calc Estimated GFR Glucose POC Capillary Glucose 119 H 253 H Calcium Total Bilirubin AST ALT Alkaline Phosphatase Total Protein Albumin Quality VTE Prophylaxis VTE prophylaxis: pharmacologic ordered Hospitalist MIPS Advance Care Plan I have confirmed that the patient's Advanced Care Plan is present, code status is documented, or surrogate decision maker is listed in patient medical record.: Yes Medication Reconciliation I have utilized all available resources to obtain, update and review the patients current medications (includes all prescriptions, OTC, herbals, cannabis, and nutritional supplements).: Yes
[2024-08-10 21:18] LABS: Glucose Point of Care 314 mg/dl (65-105)
[2024-08-11] VITALS (9 sets, daily range): BP systolic 154; BP diastolic 60; PULSE 56–73; RESP 18–20; TEMP 36.7; O2SAT 98–100
[2024-08-11] MEDS: IPRATROPIUM 0.5 MG/ALBUTEROL SULFATE 2.5 MG AMPUL.NEB 3 ML INHALATION ×3 (03:39→13:30)
[2024-08-11 06:09] LABS: Hematocrit 35.5 % (37.0-47.0); Mean Corpuscular Hemoglobin 26.5 pg (26-34); Mean Corpuscular Volume 85.5 fl (80-100); Mean Platelet Volume 10.3 fl (7.4-10.4); Platelet Count Result 291 k/mm3 (150-375); Red Blood Count 4.15 M/mm3 (4.2-5.4); Red Cell Distribution Width 14.5 % (11.5-14.5); White Blood Count 15.4 K/mm3 (4.5-10.0)
[2024-08-11 07:24] LABS: Alanine Aminotransferase 21 U/L (6-35); Albumin Level 3.3 g/dL (3.5-5.1); Alkaline Phosphatase 70 U/L (38-126); Anion Gap 10 mmol/L (4-12); Aspartate Amino Transferase 20 U/L (14-36); Bilirubin,Total 0.6 mg/dL (0.2-1.3); Blood Urea Nitrogen 49 mg/dL (7-17); Calcium 9.6 mg/dL (8.4-10.2); Carbon Dioxide 25 mmol/L (22-30); Chloride 100 mmol/L (98-107); Estimated CRCL calculation 23 ml/min; Estimated Glomerular Filt Rate 38; Glucose 178 mg/dL (65-110); Potassium 4.8 mmol/L (3.4-5.0); Sodium 135 mmol/L (137-145)
[2024-08-11 08:21] LABS: Glucose Point of Care 150 mg/dl (65-105)
[2024-08-11] MEDS: FUROSEMIDE 20 MG TABLET PO (10:54)
[2024-08-11] MEDS: guaiFENesin 12 HR 600 MG TABCR 1200 MG PO (10:54)
[2024-08-11] MEDS: AZITHROMYCIN 250 MG TABLET PO (10:55)
[2024-08-11] MEDS: AMOXICILLIN/CLAVULANATE K 500-125 MG TAB 1 TABLET PO (10:55)
[2024-08-11] MEDS: METOPROLOL TARTRATE 50 MG TAB PO (10:55)
[2024-08-11] MEDS: predniSONE 20 MG TABLET 60 MG PO (10:55)
[2024-08-11] MEDS: LOSARTAN POTASSIUM 25 MG TABLET PO (10:56)
[2024-08-11] MEDS: ENOXAPARIN 30 MG/0.3 ML SYRINGE SUB-Q (10:56)
[2024-08-11 11:50] LABS: Glucose Point of Care 225 mg/dl (65-105)
[2024-08-11] MEDS: INSULIN ASPART (*BKC) 100 UNITS/ML SUB-Q (12:41)
--- NOTE | 2024-08-11 13:53 | PM.DS ---
DS: Admitting Diagnosis Discharge Date 08/11/24 Admitting Diagnosis SOB DS: Discharge Diagnosis Discharge Diagnosis (1) COPD exacerbation: Code(s): J44.1 - Chronic obstructive pulmonary disease with (acute) exacerbation Status: Acute (2) Chronic respiratory failure with hypoxia, on home oxygen therapy: Code(s): J96.11 - Chronic respiratory failure with hypoxia; Z99.81 - Dependence on supplemental oxygen Status: Acute (3) Influenza A: Code(s): J10.1 - Influenza due to other identified influenza virus with other respiratory manifestations Status: Acute DS: Summary Hospital Course Hospital Course: This is a pleasant 83-year-old female with chronic hypoxic respiratory failure 3 L nasal cannula, chronic obstructive pulmonary disease, and chronic kidney disease stage 3 who presented to the emergency department via EMS from home for evaluation weakness and shortness of breath. She was exposed to influenza and is concerned that she may have the same with symptoms to include cough, weakness, and shortness of breath. She also mentions having a urinary tract infection recently and she is not certain if it was completely cleared up with antibiotics as she still has some mild symptoms. She denies fever, headache, sore throat, chest and pleuritic pain, hemoptysis, abdominal pain, nausea, vomiting, diarrhea, edema, and calf pain. She did get the flu shot last fall. In the ED: She was afebrile on arrival with stable vital signs. Labs are significant for WBC count of 7.1, hemoglobin 11.6, BUN 43, creatinine 1.55, glucose 148, proBNP 3920. Urinalysis was positive for 2+ protein, 2+ leukocyte esterase, and 21 to 50 WBC per high-power field. She tested positive for influenza A. Chest x-ray showed borderline heart size and mild opacities in the bilateral lower lung zones which could be pulmonary edema, atelectasis, or pneumonia. EKG showed sinus bradycardia with occasional supraventricular premature complexes and right bundle-branch block. She was given a nebulizer treatment and continues to wheeze and feel short of breath and she is being admitted in this setting. She also received ceftriaxone 1 g for possible urinary tract infection and she is being admitted in this setting for further treatment. Patient completed tamiflu, she was treated with steroid and bronchodilators for COPD exacerbation. Discharged on tapering dose of Prednisone, Trelegy and Combivent. patine now back on baseline oxygen. she was initially started on Rocephin for UTI however urine culture came back negative and Rocephin was discontinued F/u with PCP in 3-5 days Time Spent with Patient Time attestation: Total time spent providing and/or coordinating discharge services: DS: Data Data Completed and Pending Labs on day of discharge: Labs from last 24 hours 08/11/24 08/11/24 08/11/24 11:47 07:36 05:39 WBC 15.4 H RBC 4.15 L Hgb 11.0 L Hct 35.5 L MCV 85.5 MCH 26.5 MCHC 31.0 L RDW 14.5 Plt Count 291 MPV 10.3 Sodium 135 L Potassium 4.8 Chloride 100 Carbon Dioxide 25 Anion Gap 10 BUN 49 H Creatinine 1.32 H Estim Creat Clear Calc 23 Estimated GFR 38 L Glucose 178 H POC Capillary Glucose 225 H 150 H Calcium 9.6 Total Bilirubin 0.6 AST 20 ALT 21 Alkaline Phosphatase 70 Total Protein 6.0 L Albumin 3.3 L 08/10/24 08/10/24 20:09 16:40 WBC RBC Hgb Hct MCV MCH MCHC RDW Plt Count MPV Sodium Potassium Chloride Carbon Dioxide Anion Gap BUN Creatinine Estim Creat Clear Calc Estimated GFR Glucose POC Capillary Glucose 314 H 253 H Calcium Total Bilirubin AST ALT Alkaline Phosphatase Total Protein Albumin Preliminary micro results at discharge 08/08/24 23:27 Sputum Culture - Preliminary Sputum 08/06/24 16:59 Blood Culture - Preliminary Blood 08/06/24 17:01 Blood Culture - Preliminary Blood Discharge Plan Discharge Attending physician on discharge: Kia Hernandez Discharging Clinician: Kia Hernandez Anticipated Discharge Date/Time: 08/11/24 13:47 Patient Disposition: Home, Self-Care Activity: as tolerated Diet: regular Patient Instructions: Antibiotic Form Patient Language: [place] Stand Alone Forms: General Discharge Information Follow-up/Referrals: Aminata,MD Dagoberto [Primary Care Provider] - (F/u with PCP in 3-5 days ) Discharge Medications: New Trelegy Ellipta 100-62.5-25 mcg blister with device 1 inh inhalation DAILY Qty: 60 0RF Combivent Respimat 20-100 mcg/actuation mist 1 puff inhalation Q4H PRN (Reason: shortness of breath or wheezing) Qty: 4 1RF prednisone 10 mg tablet 10 mg PO DIRECTED Qty: 20 0RF Rx Instructions: see taper instructions No Action losartan 25 mg tablet 25 mg PO DAILY metoprolol tartrate 50 mg tablet 50 mg PO DAILY furosemide 20 mg tablet 20 mg PO DAILY Date of admission: 08/06/24 16:46 Primary Care Provider: DexDagoberto Admitting Provider: Jose Kaiser Attending physician on admission: Jose Kaiser Condition: Guarded Prognosis
--- NOTE | 2024-08-11 16:05 | PCPTNOTE ---
On 08/11/24, the student, RAQUEL Downing, provided care and completed [facility] documentation on this patient. I have reviewed the student's documentation and agree with the findings.
== END 2024-08-11 16:05 | disposition home or self-care (01) | DRG 194 ==
LOC: ANHED 17:06 → ANH2MED 21:02 → ANH3MEDSUR 21:10
PROVIDERS: General Practice; Physician Assistant; Admitting Provider Internal Medicine; Emergency Provider Emergency Medicine; PCP Family Medicine; Visit Provider Internal Medicine
DX: J10.1 Influenza due to other identified influenza virus with other respiratory manifestations (principal); J44.1 Chronic obstructive pulmonary disease with (acute) exacerbation; J96.11 Chronic respiratory failure with hypoxia; N18.30 Chronic kidney disease, stage 3 unspecified; R82.81 Pyuria; F17.210 Nicotine dependence, cigarettes, uncomplicated; Z99.81 Dependence on supplemental oxygen; Z95.5 Presence of coronary angioplasty implant and graft; Z95.820 Peripheral vascular angioplasty status with implants and grafts; Z85.118 Personal history of other malignant neoplasm of bronchus and lung
CPT/HCPCS: 36415; 36600; 71045; 71046; 74018; 80048; 80053; 81001; 82805; 82948; 83036; 83735; 83880; 85018; 85025; 85027; 85610; 85730; 87040; 87070; 87086; 87205; 87637; 87641; 93005; 94640; 94667; 94668; 97110; 97116; 97161; 97165; 97530; 97535; 99285; A9270; J0696; J1650; J1815; J2919; J7030; J7512